=== PATIENT | female | born 1955 | race Caucasian/White ===

== ENCOUNTER → 2018-01-03 08:30 | Outpatient (CLI) | payer OTHER, SELFPAY ==
[2018-01-03 10:50] LABS: AST(SGOT) 15 U/L (15-37); Alanine Aminotransfer ALT/SGPT 27 U/L (13-56); Anion Gap 6 (5-15); BUN 15 mg/dL (7-18); Calcium,Total 9.6 mg/dL (8.5-10.1); Chloride 104 mmol/L (98-107); Cholesterol 211 mg/dL (200); Creatinine, Serum 0.79 mg/dL (0.55-1.02); EST Glomerular Filtration Rate 78 mL/min (>60); Est Glom Filt Rate - Afr Amer 94 mL/min (>60); Glucose 96 mg/dL (74-106); High Density Lipoprotein 84 mg/dL; Potassium 4.2 mmol/L (3.5-5.1); Sodium Level 140 mmol/L (136-145); Triglycerides 102 mg/dL; Very Low Density Lipoprotein 20 mg/dL (5-40)
== END ==
PROVIDERS: Family Provider Family Medicine; PCP Family Medicine; Referring Provider Family Medicine; Visit Provider Family Medicine
DX: E78.5 Hyperlipidemia, unspecified (principal); I10 Essential (primary) hypertension
CPT/HCPCS: 36415; 80048; 80061; 84450; 84460

== ENCOUNTER → 2018-04-02 10:21 | Outpatient (CLI) | payer OTHER, SELFPAY ==
--- NOTE | 2018-04-02 10:24 | BI_ITS ---
MAMMOGRAPHY - BILATERAL SCREENING REASON FOR EXAM: Female, 62 years old. Routine annual screening examination. PERTINENT HISTORY: Non-contributory. TECHNIQUE: Digital bilateral breast heather (3D mammographic acquisition) in the CC and MLO projections. 2-D mediolateral oblique (MLO) and craniocaudad (CC) views of both breasts were obtained. CAD: Full Field Digital Mammography with Computer Added Detection was performed. COMPARISON: Comparison is made with prior study dated July 01, 2014 and February 03, 2016. FINDINGS: Breast Composition: There are scattered areas of fibroglandular density. There are no dominant masses or suspicious calcifications. There is a 6.1 mm x 5.3 mm well-defined nodular density in the slightly upper lateral portion of the left breast. This is new as compared to prior study. Correlation with ultrasound is recommended. No other significant abnormalities are identified. BI/SCREENING MAMM (CAD), BILAT IMPRESSION: New 6.1 mm x 5.3 mm well-defined nodule in the left breast as described. Correlation with ultrasound is recommended. ASSESSMENT CATEGORY: BIRADS Category 0: Incomplete. Need additional imaging evaluation. A letter regarding these results will be sent to the patient by the facility within 30 days. Approximately 10% of breast cancers are not detected by mammography. A normal mammogram should not delay biopsy of a clinically suspicious abnormality. [id number] Electronically Signed: Alcides Harry MD at 12:57 EST Tel [phone], Service support ,
== END ==
PROVIDERS: Family Provider Family Medicine; PCP Family Medicine; Visit Provider Obstetrics & Gynecology
DX: Z12.31 Encounter for screening mammogram for malignant neoplasm of breast (principal)
CPT/HCPCS: 77063; 77067

== ENCOUNTER → 2018-04-04 10:48 | Outpatient (CLI) | payer OTHER, SELFPAY ==
--- NOTE | 2018-04-04 10:50 | US_ITS ---
STUDY: ULTRASOUND BREAST - LEFT REASON FOR EXAM: Female, 62 years old. Abnormal screening mammogram. TECHNIQUE: Axial and longitudinal images of the LEFT breast were performed with a high resolution ultrasound transducer. COMPARISON: Comparison is made with prior mammogram dated April 02, 2018. FINDINGS: LEFT Breast: There is a 6 mm x 4 mm x 5 mm well-defined hypoechoic nodule at the 4:00 position breast at 4 cm from the nipple. A biopsy is recommended for further evaluation. US/Breast Limited Unilateral IMPRESSION: The mammographic abnormality corresponds to a 6 mm x 4 mm x 5 mm well-defined hypoechoic solid nodule at the 4:00 position of the breast at 4 cm from the nipple. A biopsy is recommended. ASSESSMENT CATEGORY: BIRADS Category 4: Suspicious - Biopsy Should Be Considered. A letter regarding these results will be sent to the patient by the facility within 30 days. Electronically Signed: Alcides Harry MD at 13:40 EST Tel [phone], Service support ,
== END ==
PROVIDERS: Family Provider Family Medicine; PCP Family Medicine; Referring Provider Obstetrics & Gynecology; Visit Provider Obstetrics & Gynecology
DX: N63.23 Unspecified lump in the left breast, lower outer quadrant (principal)
CPT/HCPCS: 76642

== ENCOUNTER → 2018-04-10 13:15 | Outpatient (CLI) | payer OTHER, SELFPAY ==
--- NOTE | 2018-04-10 | IMM_PTH ---
PATIENT: ROMÁN IBARRA LOC: [facility] U#:[id number] AGE/SX: 69/F ROOM: RE04/10/[address]: Dr. Bakari Goddard MD : 1955 BED: DIS: SPEC #: [id number] RECD: 04/11/18 13:05 STATUS: JUANCARLOS RETootie #: [id number] JACY: 04/10/18 00:[address]: Bakari Goddard DEPT: IMMUNOHISTOCHEMISTRY RECD BY: Barbara Calderon ENTERED: 04/11/18 13:07 SP TYPE: IMMUNO OTHR DR: Dr. Britta Weaver MD Tissues: Left breast, NOS Procedures: CALPONIN-1 (add) CK5-6 (add) CK8 (add) E-CAD (add) HER2 MEGHA (add) KI-67 (add) P53 (add) SD (add) P40 (add) ER (initial) PHYSICIAN & INSTITUTION [facility] [id number] SPECIMEN INFORMATION: Tissue Source: Left breast Clinical Info: Abnormal left breast ultrasound Specimen Number: [id number] CPT code: 60718, 66208 x6, 51671 x3 METHODOLOGY: Deparaffinized sections of prefer/formalin-fixed tissue or PAP/DQ stained slides are incubated with monoclonal/polyclonal antibodies/oligonucleotide probes. Localization is made via biotin free immunoperoxidase method. Appropriate controls are performed and reacted as expected. Results on target cell population are indicated in the following table: RESULTS: ANTIBODY / CLONE RESULT P53 (DO-7) negative Ki-67 (30-9) positive, low CK8 (85mzpiI80) positive CK5-6 (D5 & 1684) negative Calponin-1 (AI201R) negative P40 (BC28) negative E-Cad (ECH-6) positive MORPHOMETRIC ANALYSIS ER (clone 6F11) >95%, strong SD (clone 16/1E2) 90%, strong Her-2Neu (clone CB11) 0-1+ The prognostic test for HER2 is performed on formalin-fixed paraffin embedded tissue. A 3+ (positive) staining pattern is defined as intense, homogeneous, complete, circumferential membranous staining in >10% of contiguous tumor cells. A similar weak (2+) staining pattern is interpreted as equivocal. LO follow-up testing is recommended for all equivocal cases. Positivity/negativity for ER/SD is reported if > or < 1% of the tumor cells are immuno- reactive, respectively. The ASCO/CAP criteria is used for scoring. Reference: Journal of Clinical Oncology, 2013; 31:1712-1552 & 2010; 16:4521-0586. Duration of fixation: 9.5 Hrs; Sample Adequate: Yes. These assays have not been validated on decalcified tissues. Results should be interpreted with caution given the likelihood of false negativity on decalcified specimens. These tests were developed and their performance characteristics determined by [facility]. They may not have been cleared or approved by the U.S. Food and Drug Administration. The FDA has determined that such clearance or approval is not necessary. INTERPRETATION: Left breast, biopsy: Invasive ductal (colloid) carcinoma, grade 1. Positive for estrogen receptors (favorable prognostic indicator). Positive for progesterone receptors (favorable prognostic indicator). Negative for overexpression of PSX5orr. AM:najma 04/12/18
[2018-04-10 09:49] VITALS: BMI 34.0
--- NOTE | 2018-04-10 10:00 | BRBX_PTH ---
PATIENT: ROMÁN IBARRA LOC: [facility] U#:[id number] AGE/SX: 69/F ROOM: RE04/10/[address]: Dr. Bakari Goddard MD : 1955 BED: DIS: SPEC #: [id number] RECD: 04/10/18 12:11 STATUS: JUANCARLOS REQ #: [id number] JACY: 04/10/18 10:[address]: Bakari Goddard DEPT: SURGICAL PATHOLOGY RECD BY: Boaz Velarde ENTERED: 04/10/18 12:41 SP TYPE: BREAST BX OTHR DR: MD Dr. Adryan Garcia MD Tissues: Left breast, NOS Procedures: Surgery Specimen Level IV Comments: @ Originally on account #[id number] Req #[id number] HEADER OPERATION: Left breast biopsy PRE-OP DIAGNOSIS: Abnormal left breast ultrasound TISSUE SUBMITTED: Left breast tissue FIXATION TIME: 9.5 hours MICROSCOPIC DIAGNOSIS Left breast, ultrasound-guided biopsy: Well differentiated ductal carcinoma (colloid carcinoma). AM:najma 04/11/18 COMMENT ER/NJ/Xfy5dhi studies are being performed on sections of tumor and the results from this study will be reported separately ([id number]). Case has been reviewed in consultation with Dr. Deal who concurs with the above diagnosis. IDC:JULIO CESAR MICROSCOPIC DESCRIPTION Slides are reviewed. GROSS DESCRIPTION Received in fixative is one container labeled with the patient's name and designated left breast. The specimen consists of multiple fragments of perez-yellow fibroadipose tissue that in aggregate measure 1.5 x 0.5 x 0.1 cm. The entire specimen is submitted in one cassette. / JULIO CESAR:najma 04/10/18 TC:0 CPT: 53865
--- OUTSIDE RECORDS SUMMARY | 2018-06-15 09:47 | XMS RPT_ITS ---
:1955 Author Organization OHIP Support Name Relationship Address Phone [facility] YARSANISM Unavailable [address] + [place] [address] ROGELIOR SUHAS Unavailable [address] + [place] [address] [facility] METHOD YARSANISM Unavailable [address] + [place] [address] ROGELIOR SUHAS Unavailable [address] + [place] [address] [facility] METH YARSANISM Unavailable [address] + [place] [address] UNGPIERCER, SUHAS Unavailable [address] + [place] [address] [facility] METH YARSANISM Unavailable [address] + [place] [address] UNGPIERCER, SUHAS Unavailable [address] + [place] [address] [facility] METH YARSANISM Unavailable [address] + [place] [address] ROGELIOR, SUHAS Unavailable [address] + [place] [address] [facility] METH YARSANISM Unavailable [address] + [place] [address] UNGPIERCER, SUHAS Unavailable [address] + [place] [address] [facility] METH YARSANISM Unavailable [address] + [place] [address] UNGPIERCER, SUHAS Unavailable [address] + [place] [address] [facility] METH YARSANISM Unavailable [address] + [place] [address] SUHAS HOLLOWAY Unavailable [address] + [place] [address] Care Team Providers Name Role Phone Macie Adryan Attending Unavailable Macie, Adryan Referring Unavailable Jolliff, Britta Primary Care Unavailable Cebul, Bakari Attending Unavailable Satnameman, Adryan Referring Unavailable Cebul, Bakari Attending Unavailable Cebul, Bakari Referring Unavailable Jolliff, Britta Primary Care Unavailable Cebul, Bakari Attending Unavailable Jolliff, Britta Referring Unavailable Prah, Bryce Attending Unavailable Jolliff, Britta Primary Care Unavailable Prah, Bryce Attending Unavailable Jolliff, Britta Primary Care Unavailable Prah, Bryce Consulting Unavailable Jolliff, Britta Attending Unavailable Jolliff, Britta Referring Unavailable Jolliff, Britta Primary Care Unavailable Weeman, Adryan Attending Unavailable Jolliff, Britta Primary Care Unavailable PROBLEMS PROBLEMS DATE TYPE CONDITION / CODE ATTENDING STATUS SOURCE 04/17/2018 Unknown C50.919 - Bryce Haddad Malignant neoplasm Community of unspecified Hospital site of Repository unspecified female breast / C50.919(ICD-10) 04/10/2018 Unknown R92.8 - Other Bakari Goddard Active [place] abnormal and Community inconclusive Hospital findings on Repository diagnostic imaging of breast / R92.8(ICD-10) PROCEDURES PROCEDURES No Procedure Records FoundRESULTS RESULTS ONCOLOGY CONSULTATION Observed: 04/17/2018 Status: F Source: [place] 5:04 PM [facility] REPOSITORY [facility] [address] [place] [address] Oncology Consultation Date of Service: 04/17/18 1624 MR#: [id number] Acct: [id number] Name: ROMÁN HOLLOWAY Rep #: [id number] : 1955 From: Bryce Haddad MD Age/Sex: 62/F Location: [facility]MD Status: Signed Consult Referring Physician: Dr. Hicks Consult Results: Left breast cancer-colloid type. Subjective Date of Service:: 04/17/18 Chief Complaint: Left breast cancer History of Present Illness: 62y.o.woman was found to have abnormal screening mammogram on 04/02/2018. Ultrasound of the left breast on 04/04/2018 showed 6 mm nodule in the left lower outer quadrant. She had core biopsy done on 04/10/2017 which showed well-differentiated ductal carcinoma, colloid type ER/DE positive, HER-2 0-1+ by IHC. She saw Dr. Goddard and they discussed surgical management including mastectomy with axiilary lymph node dissection versus lumpectomy, lymph node dissection followed by radiation therapy. She is not sure what to do so was referred for another opinion/discussion. Health History: Past Medical History Cancer: Breast cancer Past Medical History (Last Updated 04/17/18 @ 15:33 by Sandra Durant) Breast cancer in female (Acute) Screening for intestinal cancer (Acute) Abnormal mammogram of left breast (Acute) History of hysterectomy (Acute) Breast cancer (Acute 03/2018) History of hysterectomy (Acute 2009) Hyperlipidemia (Acute) HTN (hypertension) (Chronic) Past Surgical History (Last Updated 04/16/18 @ 14:13 by Ana Rubio) History of breast biopsy (Acute) History of dilation and curettage (Acute) Family History (Last Updated 04/10/18 @ 09:51 by Ana Rubio) Mother Heart disease Hypertension Father Heart disease Myocardial infarction Brother Hypertension Allergies/Adverse Reactions: Allergy/AdvReac Type Severity Reaction Status Date / Time No Known Allergies Allergy Verified 04/16/18 14:13 Review of Systems Constitutional:: Denies: Fever, Sweats, Weight loss, Appetite change, Chills Cardiovascular:: Denies: Chest pain, Palpitations, Dyspnea on exertion, Orthopnea, PND, Shortness of breath Respiratory: Denies: Cough, Hemoptysis, Shortness of Breath, Wheezing Gastrointestinal:: Denies: Abdominal pain, Nausea, Vomiting, Diarrhea, Constipation, Hematochezia Genitourinary: Denies: Dysuria, Hematuria, 15, Flank pain Musculoskeletal:: Denies: Back pain, Myalgia, Arthralgia Skin: Denies: Rash, Skin Changes, Wounds Neurological:: Denies: Headache, Dizziness, Visual changes, Tinnitus, Hearing loss Psychiatric: Denies: Anxiety, Depression, Homicidal Ideations, Suicidal Ideations Vital Signs Height 5 ft 5 in Weight: 102.058 kg Weight in Pounds 225.0 lbs Pulse Ox 95 - Physical Exam General: Alert, Oriented x3, No apparent distress HEENT: Atraumatic, PERRLA, EOMI, Normocephalic Oropharynx:: Dry mucosa Neck:: Supple, Trachea midline. Negative for: JVD, bilateral Cardiac:: Regular rate, Regular rhythm, Normal S1, Normal S2. Negative for: Murmur Lungs: Clear to auscultation, Excusion symmetrical. Negative for: Rhonchi, Wheezes Abdomen:: Bowel sounds x 4, Soft, Non-tender, Non-distended. Negative for: Hepatosplenomegaly Extremities:: Negative for: Cyanosis, Edema Neurological: Neuro grossly intact Skin:: Negative for: Lesions, Rash, Petechiae, Ecchymosis Psychiatric:: Appropriate affect, Euthymic Lymphatics:: Negative for: Cervical lymphadenopathy, Supraclavicular lymphadenopathy, Axillary lymphadenopathy Breast:: - - Deferred. Pathology Data: 04/10/2018 Lbreast core biopsy report reviewed. Left breast, biopsy: Invasive ductal (colloid) carcinoma, grade 1. Positive for estrogen receptors (favorable prognostic indicator). Positive for progesterone receptors (favorable prognostic indicator). Negative for overexpression of [id number]. Assessment and Plan Left Breast cancer, ductal-colloid type/mucinous type, stage IA(cT1 cN0 M0). ER/DE positive, Her2 negative. Tumor size 6mm. Grade 1. Discussed low risk, breast cancer stage I management, mastectomy vs lumpectomy and radiation therapy with survival equivalence. Also discussed role of hormonal therapy, prognosis which is good and about 90% in 10yrs. Because her disease is low risk, my recommendation will be lumpectomy and radiation. Plan is to follow up with Dr. Goddard to discuss her choice of surgical management and proceed. RTC 6 weeks. Primary Care Provider: Britta Weaver MD Referring Provider: - Problem List (1) Breast cancer, left Status: Acute Qualifiers: Breast location: lower outer quadrant of breast Estrogen receptor status: positive Patient sex: female Qualified Code(s): C50.512 - Malignant neoplasm of lower-outer quadrant of left female breast; Z17.0 - Estrogen receptor positive status [ER+] Code Visit Office Visits / Consults: 97686 OP Consult L5 04/17/18 8581 <Electronically signed by Bryce Haddad MD> Date [facility]: Date (if applicable) CC: Britta Weaver MD; Bakari Goddard MD SURGERY VISIT REPORT Observed: 04/16/2018 Status: F Source: [place] 5:[address] [facility] REPOSITORY [facility] [address] [place] [address] OFFICE VISIT Date of Service: 04/16/18 MR#: [id number] Acct: [id number] Name: ROMÁN HOLLOWAY Y Rep #: [id number] : 1955 Provider: Bakari Goddard MD Age/Sex: 62/F Location: [facility] Status: Signed Intake Intake Visit Reasons: Lt Breast Abnormal US Chief Complaint: post breast biopsy Psychological Operations Specialist Required: No Is patient in pain?: No Allergies No Known Allergies Allergy (Verified 04/16/18 14:13) Medications aspirin 81 mg tablet,delayed release 81 mg PO DAILY 04/10/18 [History Confirmed 04/10/18] atorvastatin 20 mg tablet 20 mg PO DAILY 04/10/18 [History Confirmed 04/10/18] calcium carbonate 500 mg calcium (1,250 mg) tablet 500 mg PO BID tab 04/10/18 [History Confirmed 04/10/18] metoprolol succinate ER 25 mg tablet,extended release 24 hr 25 mg PO DAILY 04/10/18 [History Confirmed 04/10/18] Is last menstrual period known: No Post menopausal: Yes Patient : No Subjective Details: 62-year-old female returns to discuss findings of ultrasound- guided needle core biopsy lower outer left breast mass that I performed on April 10, 2018 for her. My previous history and physical is as follows: MR#:[id number]:[id number] Name: ROMÁN HOLLOWAY YRep #:[id number] : 1955 Provider:Bakari Goddard MD Age/Sex: 62/F Location:[facility] Status:Signed Intake Vital Signs 04/10/18 Height 5 ft 6 in 04/10/18 Weight: 210 lb 12 oz 04/10/18 Body Mass Index (BMI) 34.0 04/10/18 Blood Pressure 137/84 H 04/10/18 Blood Pressure Location Rt brachial 04/10/18 Blood Pressure Position Sitting 04/10/18 Respiratory Rate 20 H 04/10/18 Pulse Rate 98 04/10/18 Pulse Ox 96 Intake Visit Reasons: Lt Breast Abn Mammo/US [facility] 04/04 Chief Complaint: abn mammo/us left breast Psychological Operations Specialist Required: No Is patient in pain?: No Allergies No Known Allergies Allergy (Verified 04/10/18 09:51) Medications aspirin 81 mg tablet,delayed release 81 mg PO DAILY 04/10/18 [History Confirmed 04/10/18] atorvastatin 20 mg tablet 20 mg PO DAILY 04/10/18 [History Confirmed 04/10/18] calcium carbonate 500 mg calcium (1,250 mg) tablet 500 mg PO BID tab 04/10/18 [History Confirmed 04/10/18] metoprolol succinate ER 25 mg tablet,extended release 24 hr 25 mg PO DAILY 04/10/18 [History Confirmed 04/10/18] Is last menstrual period known: No Post menopausal: Yes Patient : No PFSH Medical History Screening for intestinal cancer (Acute) Abnormal mammogram of left breast (Acute) History of hysterectomy (Acute 2009) Hyperlipidemia (Acute) HTN (hypertension) (Chronic) Surgical History History of dilation and curettage (Acute) Family History Mother Heart disease Hypertension Father Heart disease Myocardial infarction Brother Hypertension Social History Smoking Status: Never smoker HPI HPI HPI: ROMÁN HOLLOWAY, is a 62 F who presents to the office today for surgical consultation regarding an abnormal left mammogram. This also detected the patient has never had a colonoscopy. I have assisted her with a colonoscopy in the past. 62-year-old female. . First child was born when she was 23. Menarche at age 14. She did breast-feed. No previous breast biopsies. She was on estrogen replacement for up until a year ago. No history in the family of breast cancer. At the [facility] on April 02, 2018 she had bilateral screening mammography. There was felt to be a new 6.1 x 5.3 mm well-defined nodule lower outer left breast. So on April 04 a breast ultrasound was obtained. This demonstrated a 6 x 4 x 5 mm well-defined hypoechoic solid nodule 4 o'clock position left breast 4 cm from the nipple BI-RADS Category 4. The patient has been referred for surgical consultation. She denies any nipple discharge. She denies any abdominal pain bright red blood per rectum or melena. She denies any family history of colon cancer ROS General General: No weight change, appetite, fatigue, colon cancer, breast cancer or weakness HEENT HEENT: No difficulty swallowing, eye injury, eye surgery, swollen glands or hoarseness Endo Endocrine: No thyroid disease, diabetes mellitus, thyroid cancer, Hair loss, heat intolerance or cold intolerance Cardio Cardiovascular: Yes high blood pressure; no murmur, pacemaker, heart disease, atrial fibrillation, heart attack, heart stent, palpitations, shortness of breat with exertion or chest pain Resp Respiratory: No shortness of breath, No sleep apnea, No cough, No COPD, No asthma, No emphysema, No wheezing Gastro Gastrointestinal: No abdominal pain, No nausea or vomiting, No diarrhea, No constipation, No blood in stool, No acid reflux, No hemorrhoids, No ulcers, No gallbladder problem, No black,tarry stools Adam Hematologic: No blood thinners, No blood disorders, No bleeding, No anemia, No blood clots Neuro Neurologic: No weakness Exam Const General: cooperative, healthy appearing Nutritional Appearance: obese HENMT Head: normal to inspection Chest Other: Right breast: No focal mass. No nipple discharge. No axillary or clavicular adenopathy Left breast: No focal mass. No nipple discharge. No axillary or clavicular adenopathy Resp Effort AND Inspection: normal respiratory effort Auscultation: clear to auscultation bilaterally Cardio Rate: regular rate Rhythm: regular rhythm Heart Sounds: no murmurs GI Palpation: soft, no hepatosplenomegaly Neuro General: alert, awake Extrem General: no calf tenderness bilaterally Psych Affect: normal affect Office Procedures Biopsy Provider Documentation Ultrasound-guided needle core biopsy lower outer left breast Timeout and informed consent was obtained. The patient was taken to procedure room placed upon the table. Left shoulder roll was placed. Breast was prepped with Betadine. Ultrasound was performed. The density in question lower outer left breast 4 o'clock position +4 cm was identified. Under ultrasound guidance 1% lidocaine mixed 50-50 with 0.5% Marcaine was used as a local anesthetic. Throughout the procedure total of 10 cc was used. A small stab incision was created. A 14-gauge Monopty needle was advanced to prefire depth. Pre-and post fire films were obtained. 4 cores were obtained. A marking clip was left in position. Pressure was held for hemostasis. Steri-Strip Telfa and OpSite dressing applied. The specimens had been placed in formalin upon obtaining. She was given activity wound care instructions. The lesion in question was felt to have partially distorted with biopsy. It did not completely resolve. Final pathology is pending Bakari Goddard M.D., F.A.C.S. Alert Golf Course Architect Yes Biopsy Breast Biopsy: [id number] US Guidance Procedure Time Out Time Out Informed consent given: Yes Consent signed: Yes Time out checklist: patient, procedure, site marked/identified, positioning of patient, supplies available, allergies confirmed, team agrees on procedure Time out staff in room: Yes Time out verified: Yes Time out date: 04/10/18 Time out time: 10:10 Assessment AND Plan Problems 1. Abnormal mammogram of left breast R92.8 2. Screening for intestinal cancer Z12.10 Plan I recommend to the patient ultrasound-guided needle core biopsy lower outer left breast 4:00 +4 cm. She concurred and we proceeded successfully her that today. Final pathology is pending. I am anticipating benign results and plans for follow-up left unilateral mammogram ultrasound at 6 months I have recommended the patient a screening colonoscopy with possible biopsy or polypectomy is indicated. She is aware of the technique, benefit, risks, alternatives. She has had an opting to ask and have questions answered. She is now agreeable to scheduling in proceeding. CC: Dr. Britta Goddard M.D., F.A.C.S. Orders Orders: Biopsy Today R92.8 Colonoscopy Today Z12.11 Coding Level of Care Code Attention Golf Course Architect Diagnoses Abnormal mammogram of left breast R92.8 Screening for intestinal cancer Z12.10 Additional Codes Biopsy - Breast Biopsy: [id number] US Guidance (06870) 04/10/18 1457<Electronically signed by Bakari Goddard MD> Date Bakari Goddard MD Cosigner Signature:Date (if applicable) CC: Britta Weaver MD; Adryan Quijano MD Assessment AND Plan Problems 1. Abnormal mammogram of left breast R92.8 2. Breast cancer in female C50.919 Plan 62-year-old female. Ultrasound-guided needle core biopsy lower outer left breast 4 o'clock position demonstrates well differentiated ductal carcinoma (colloid carcinoma). Estrogen receptor greater than 95%. Progesterone receptor 90% strong. HER-2/brittney 0-1+. This was quite a well circumscribed lesion on her preoperative mammographic imaging. The mammograms do not demonstrate any additional focal disease bilaterally. Ultrasound was able to well see this lesion lower outer left breast 4:00. Today's appointment was a 30-minute [id number] consultative appointment with the patient and family members. I am not clinically able to detect any axillary or clavicular adenopathy. I believe that this is an early stage well-differentiated tumor with good prognosis. I have proposed for her a stereotactic wire localization left breast with subsequent wire localized lumpectomy and left axillary sentinel lymph node biopsy. She has had an opportunity to ask and have questions answered. She question whether she would be better treated with a left mastectomy. She also questioned whether she additionally should have a prophylactic right mastectomy. At the conclusion of the appointment based upon the current size of the lesion at 6 mm and well behaved pathology I believe that the breast conservation surgery would be a very appropriate approach. Of additional note is that there is no family history of breast cancer. At the conclusion of the appointment the patient was unsure. I recommended to her that we obtain hematology oncology consultation with to help describe to her from a nonsurgical standpoint appropriate options. She has had an opportunity to ask and have questions answered. We will tentatively set an operative date and the patient will preoperatively be able to decide how she would like to proceed. She is well aware that she has a favorable prognosis. I very much appreciate the kind opportunity of assisting with her surgical care. Cc: Dr Britta Weaver and Dr. Bryce Goddard M.D., F.A.C.S. Orders Referrals: Coding Level of Care Code Off vis,est,level 3 Diagnoses Abnormal mammogram of left breast R92.8 Breast cancer in female C50.919 04/16/18 1714 <Electronically signed by Bakari Goddard MD> Date Bakari Goddard MD Cosigner Signature: Date (if applicable) CC: Britta Weaver MD; Bryce Haddad MD SURGERY VISIT REPORT Observed: 04/10/2018 Status: F Source: [place] 2:57 PM [facility] [address] [place] [address] [address] [place] [address] OFFICE VISIT Date of Service: 04/10/18 MR#: [id number] Acct: [id number] Name: ROMÁN HOLLOWAY Rep #: [id number] : 1955 Provider: Bakari Goddard MD Age/Sex: 62/F Location: [facility] Status: Signed Intake Vital Signs04/10/18 Height 5 ft 6 in 04/10/18 Weight: 210 lb 12 oz 04/10/18 Body Mass Index (BMI) 34.0 04/10/18 Blood Pressure 137/84 H Intake Visit Reasons: Lt Breast Abn Mammo/US [facility] 04/04 Chief Complaint: abn mammo/us left breast Psychological Operations Specialist Required: No Is patient in pain?: No Allergies No Known Allergies Allergy (Verified 04/10/18 09:51) Medications aspirin 81 mg tablet,delayed release 81 mg PO DAILY 04/10/18 [History Confirmed 04/10/18] atorvastatin 20 mg tablet 20 mg PO DAILY 04/10/18 [History Confirmed 04/10/18] calcium carbonate 500 mg calcium (1,250 mg) tablet 500 mg PO BID tab 04/10/18 [History Confirmed 04/10/18] metoprolol succinate ER 25 mg tablet,extended release 24 hr 25 mg PO DAILY 04/10/18 [History Confirmed 04/10/18] Is last menstrual period known: No Post menopausal: Yes Patient : No PFSH Medical History Screening for intestinal cancer (Acute) Abnormal mammogram of left breast (Acute) History of hysterectomy (Acute 2009) Hyperlipidemia (Acute) HTN (hypertension) (Chronic) Surgical History History of dilation and curettage (Acute) Family History Mother Heart disease Hypertension Father Heart disease Myocardial infarction Brother Hypertension Social History Smoking Status: Never smoker HPI HPI HPI: ROMÁN HOLLOWAY, is a 62 F who presents to the office today for surgical consultation regarding an abnormal left mammogram. This also detected the patient has never had a colonoscopy. I have assisted her with a colonoscopy in the past. 62-year-old female. . First child was born when she was 23. Menarche at age 14. She did breast-feed. No previous breast biopsies. She was on estrogen replacement for up until a year ago. No history in the family of breast cancer. At the [facility] on April 02, 2018 she had bilateral screening mammography. There was felt to be a new 6.1 x 5.3 mm well-defined nodule lower outer left breast. So on April 04 a breast ultrasound was obtained. This demonstrated a 6 x 4 x 5 mm well-defined hypoechoic solid nodule 4 o'clock position left breast 4 cm from the nipple BI-RADS Category 4. The patient has been referred for surgical consultation. She denies any nipple discharge. She denies any abdominal pain bright red blood per rectum or melena. She denies any family history of colon cancer ROS General General: No weight change, appetite, fatigue, colon cancer, breast cancer or weakness HEENT HEENT: No difficulty swallowing, eye injury, eye surgery, swollen glands or hoarseness Endo Endocrine: No thyroid disease, diabetes mellitus, thyroid cancer, Hair loss, heat intolerance or cold intolerance Cardio Cardiovascular: Yes high blood pressure; no murmur, pacemaker, heart disease, atrial fibrillation, heart attack, heart stent, palpitations, shortness of breat with exertion or chest pain Resp Respiratory: No shortness of breath, No sleep apnea, No cough, No COPD, No asthma, No emphysema, No wheezing Gastro Gastrointestinal: No abdominal pain, No nausea or vomiting, No diarrhea, No constipation, No blood in stool, No acid reflux, No hemorrhoids, No ulcers, No gallbladder problem, No black,tarry stools Adam Hematologic: No blood thinners, No blood disorders, No bleeding, No anemia, No blood clots Neuro Neurologic: No weakness Exam Const General: cooperative, healthy appearing Nutritional Appearance: obese [facility] Head: normal to inspection Chest Other: Right breast: No focal mass. No nipple discharge. No axillary or clavicular adenopathy Left breast: No focal mass. No nipple discharge. No axillary or clavicular adenopathy Resp Effort AND Inspection: normal respiratory effort Auscultation: clear to auscultation bilaterally Cardio Rate: regular rate Rhythm: regular rhythm Heart Sounds: no murmurs GI Palpation: soft, no hepatosplenomegaly Neuro General: alert, awake Extrem General: no calf tenderness bilaterally Psych Affect: normal affect Office Procedures Biopsy Provider Documentation Ultrasound-guided needle core biopsy lower outer left breast Timeout and informed consent was obtained. The patient was taken to procedure room placed upon the table. Left shoulder roll was placed. Breast was prepped with Betadine. Ultrasound was performed. The density in question lower outer left breast 4 o'clock position +4 cm was identified. Under ultrasound guidance 1% lidocaine mixed 50-50 with 0.5% Marcaine was used as a local anesthetic. Throughout the procedure total of 10 cc was used. A small stab incision was created. A 14-gauge Monopty needle was advanced to prefire depth. Pre-and post fire films were obtained. 4 cores were obtained. A marking clip was left in position. Pressure was held for hemostasis. Steri-Strip Telfa and OpSite dressing applied. The specimens had been placed in formalin upon obtaining. She was given activity wound care instructions. The lesion in question was felt to have partially distorted with biopsy. It did not completely resolve. Final pathology is pending Bakari Goddard M.D., F.A.C.S. Alert Golf Course Architect Yes Biopsy Breast Biopsy: [id number] US Guidance Procedure Time Out Time Out Informed consent given: Yes Consent signed: Yes Time out checklist: patient, procedure, site marked/identified, positioning of patient, supplies available, allergies confirmed, team agrees on procedure Time out staff in room: Yes Time out verified: Yes Time out date: 04/10/18 Time out time: 10:10 Assessment AND Plan Problems 1. Abnormal mammogram of left breast R92.8 2. Screening for intestinal cancer Z12.10 Plan I recommend to the patient ultrasound-guided needle core biopsy lower outer left breast 4:00 +4 cm. She concurred and we proceeded successfully her that today. Final pathology is pending. I am anticipating benign results and plans for follow-up left unilateral mammogram ultrasound at 6 months I have recommended the patient a screening colonoscopy with possible biopsy or polypectomy is indicated. She is aware of the technique, benefit, risks, alternatives. She has had an opting to ask and have questions answered. She is now agreeable to scheduling in proceeding. CC: Dr. Britta Goddard M.D., F.A.C.S. Orders Orders: Coding Level of Care Code Attention [employer] Diagnoses Abnormal mammogram of left breast R92.8 Screening for intestinal cancer Z12.10 Additional Codes Biopsy - Breast Biopsy: 51642 US Guidance (21753) 04/10/18 1457 <Electronically signed by Bakari Goddard MD> Date Bakari Goddard MD Cosigner Signature: Date (if applicable) CC: Britta Weaver MD; Adryan Quijano MD BREAST BIOPSY Observed: 04/10/2018 Status: F Source: [place] (CHOOSE SITE) 10:[address] [facility] REPOSITORY Patient: ROMÁN HOLLOWAY : 1955 (62/F) Acct Num: [id number] Phys: Rupesh KNUTSON,Bakari Unit Num: [id number] Loc: LABSPEC Specimen: [id number] Received: 04/10/18 - 1211 Spec Type: BREAST BX TISSUES 1 TISSUES: Left breast, NOS COMMENT ER/DE/Pau2vhh studies are being performed on sections of tumor and the results from this study will be reported separately ([id number]). Case has been reviewed in consultation with Dr. Deal who concurs with the above diagnosis. IDC:SJ GROSS DESCRIPTION Received in fixative is one container labeled with the patient's name and designated left breast. The specimen consists of multiple fragments of perez- yellow fibroadipose tissue that in aggregate measure 1.5 x 0.5 x 0.1 cm. The entire specimen is submitted in one cassette. / SJ:najma 04/10/18 TC:0 CPT: 27989 HEADER OPERATION: Left breast biopsy PRE-OP DIAGNOSIS: Abnormal left breast ultrasound TISSUE SUBMITTED: Left breast tissue FIXATION TIME: 9.5 hours MICROSCOPIC DESCRIPTION Slides are reviewed. MICROSCOPIC DIAGNOSIS Left breast, ultrasound-guided biopsy: Well differentiated ductal carcinoma (colloid carcinoma). AM:najma 04/11/18 Signed Fabiano Moreno, 04/12/18 <signature on file> Performed By: #### PBRBX #### [facility] [address] [place] [address], [address] IMMUNOHISTOCHEMISTRY Observed: 04/10/2018 Status: F Source: [place] 12:[address] [facility] REPOSITORY Patient: ROMÁN HOLLOWAY : 1955 (62/F) Acct Num: [id number] Phys: Bakari Goddard MD Unit Num: [id number] Loc: LABSPEC Specimen: [id number] Received: 04/11/18 - 1305 Spec Type: IMMUNO TISSUES 1 TISSUES: Left breast, NOS SPECIMEN INFORMATION: Tissue Source: Left breast Clinical Info: Abnormal left breast ultrasound Specimen Number: [id number] CPT code: 45139, 99942 x6, 46381 x3 METHODOLOGY: Deparaffinized sections of prefer/formalin-fixed tissue or PAP/DQ stained slides are incubated with monoclonal/polyclonal antibodies/oligonucleotide probes. Localization is made via biotin free immunoperoxidase method. Appropriate controls are performed and reacted as expected. Results on target cell population are indicated in the following table: RESULTS: ANTIBODY / CLONE RESULT P53 (DO-7) negative Ki-67 (30-9) positive, low CK8 (04lbsqQ39) positive CK5-6 (D5 AND 1684) negative Calponin-1 (PP053B) negative P40 (BC28) negative E-Cad (ECH-6) positive MORPHOMETRIC ANALYSIS ER (clone 6F11) >95%, strong DE (clone 16/1E2) 90%, strong Her-2Neu (clone CB11) 0-1+ The prognostic test for HER2 is performed on formalin-fixed paraffin embedded tissue. A 3+ (positive) staining pattern is defined as intense, homogeneous, complete, circumferential membranous staining in >10% of contiguous tumor cells. A similar weak (2+) staining pattern is interpreted as equivocal. LO follow- up testing is recommended for all equivocal cases. Positivity/negativity for ER/ DE is reported if > or < 1% of the tumor cells are immuno- reactive, respectively. The ASCO/CAP criteria is used for scoring. Reference: Journal of Clinical Oncology, 2013; 31:0787-3176 AND 2010; 16:2784- 2795. Duration of fixation : 9.5 Hrs; Sample Adequate: Yes. These assays have not been validated on decalcified tissues. Results should be interpreted with caution given the likelihood of false negativity on decalcified specimens. These tests were developed and their performance characteristics determined by [facility]. They may not have been cleared or approved by the U.S. Food and Drug Administration. The FDA has determined that such clearance or approval is not necessary. INTERPRETATION: Left breast, biopsy: Invasive ductal (colloid) carcinoma, grade 1. Positive for estrogen receptors (favorable prognostic indicator). Positive for progesterone receptors (favorable prognostic indicator). Negative for overexpression of XMH2umi. AM:najma 04/12/18 PHYSICIAN [facility] INSTIT[facility] [address] [address] Signed Fabiano Moreno, DO 04/12/18 <signature on file> Performed By: #### PIMM #### [facility] [address] [place] [address]. [place], [place], [address] BREAST LIMITED Observed: 04/04/2018 Status: F Source: [place] UNILATERAL 10:[address] [facility] REPOSITORY [facility] Imaging Services [address] [place] [address] Breast Limited Unilateral MR#: [id number] Acct: [id number] Name: ROMÁN HOLLOWAY Rep #: [id number] : 1955 F 62 From: Alcides Harry MD PCP: Britta Weaver MD Status: REG CLI Study: Breast Limited Unilateral Date of Exam: 04/04/18 Exam# [id number] Ordering Dr: Adryan Quijano MD STUDY: ULTRASOUND BREAST - LEFT REASON FOR EXAM: Female, 62 years old. Abnormal screening mammogram. TECHNIQUE: Axial and longitudinal images of the LEFT breast were performed with a high resolution ultrasound transducer. COMPARISON: Comparison is made with prior mammogram dated April 02, 2018. FINDINGS: LEFT Breast: There is a 6 mm x 4 mm x 5 mm well-defined hypoechoic nodule at the 4:00 position breast at 4 cm from the nipple. A biopsy is recommended for further evaluation. US/Breast Limited Unilateral IMPRESSION: The mammographic abnormality corresponds to a 6 mm x 4 mm x 5 mm well-defined hypoechoic solid nodule at the 4:00 position of the breast at 4 cm from the nipple. A biopsy is recommended. ASSESSMENT CATEGORY: BIRADS Category 4: Suspicious - Biopsy Should Be Considered. A letter regarding these results will be sent to the patient by the facility within 30 days. Electronically Signed: Alcides Harry MD at 13:40 EST Tel [phone], Service support , CC: Britta Weaver MD; Adryan Quijano MD Slp Teacher: Signed SCREENING MAMM (CAD), Observed: 04/02/2018 Status: F Source: [facility] 10:[address] [facility] REPOSITORY [facility] Imaging Services [address] [place] [address] SCREENING MAMM (CAD), BILAT MR#: [id number] Acct: [id number] Name: ROMÁN HOLLOWAY Rep #: [id number] : 1955 F 62 From: Alcides Harry MD PCP: Britta Weaver MD Status: [facility] Study: SCREENING MAMM (CAD), BILAT Date of Exam: 04/02/18 Exam# [id number] Ordering Dr: Adryan Quijano MD MAMMOGRAPHY - BILATERAL SCREENING REASON FOR EXAM: Female, 62 years old. Routine annual screening examination. PERTINENT HISTORY: Non-contributory. TECHNIQUE: Digital bilateral breast heather (3D mammographic acquisition) in the CC and MLO projections. 2-D mediolateral oblique (MLO) and craniocaudad (CC) views of both breasts were obtained. CAD: Full Field Digital Mammography with Computer Added Detection was performed. COMPARISON: Comparison is made with prior study dated July 01, 2014 and February 03, 2016. FINDINGS: Breast Composition: There are scattered areas of fibroglandular density. There are no dominant masses or suspicious calcifications. There is a 6.1 mm x 5.3 mm well-defined nodular density in the slightly upper lateral portion of the left breast. This is new as compared to prior study. Correlation with ultrasound is recommended. No other significant abnormalities are identified. BI/SCREENING MAMM (CAD), BILAT IMPRESSION: New 6.1 mm x 5.3 mm well-defined nodule in the left breast as described. Correlation with ultrasound is recommended. ASSESSMENT CATEGORY: BIRADS Category 0: Incomplete. Need additional imaging evaluation. A letter regarding these results will be sent to the patient by the facility within 30 days. Approximately 10% of breast cancers are not detected by mammography. A normal mammogram should not delay biopsy of a clinically suspicious abnormality. [id number] Electronically Signed: Alcides Harry MD at 12:57 EST Tel [phone], Service support , CC: Britta Weaver MD; Adryan Quijano MD Slp Teacher: Signed BASIC METABOLIC Collected: 01/03/2018 Status: F Source: [place] PROFILE (BMP) 8:[address] [facility] REPOSITORY TYPE CODE TESTS RESULT OUT OF RANGE REFERENCE UNITS LAB L501.0100 74-106 mg/dL Normal GLU 96 Result Comment: Please note revised GLUCOSE reference range effective 2017. LAB L501.1000 7-18 mg/dL Normal BUN 15 LAB L501.1100 0.55-1.02 mg/dL Normal CREAT,SERUM 0.79 Result Comment: The validity of the calculated GFR AND GFRAA in patients over 70 years has not been determined. Clinical correlation is essential. LAB L501.1110 >60 mL/min Normal EST GFR 78 Result Comment: Non- GFR Calc LAB L501.1115 >60 mL/min Normal EST GFR - AA 94 Result Comment: GFR Calc LAB L501.1300 10-20 RATIO Normal BUN/CRE 19.0 LAB L501.2200 8.5-10.1 mg/dL CA Normal 9.6 LAB L501.5300 136-145 mmol/L NA Normal 140 LAB L501.5600 3.5-5.1 mmol/L K Normal 4.2 LAB L501.5900 98-107 mmol/L CL Normal 104 LAB L501.6100 21.0-32.0 mmol/L Normal CO2 30.0 LAB L501.6200 5-15 Normal GAP 6 Performed By: #### L500.2500, L500.4100, L501.4100, L501.4405 #### [facility] [address] [place], [place], [id number] LIPID PROFILE Collected: 01/03/2018 Status: F Source: [place] 8:[address] [facility] REPOSITORY TYPE CODE TESTS RESULT OUT OF RANGE REFERENCE UNITS LAB L501.4900 200 mg/dL High CHOL 211 Result Comment: <200 mg/dL Desirable 200-240 mg/dL Borderline >240 mg/dL High Risk LAB L501.5000 mg/dL Normal TRIG 102 Result Comment: The drugs N-Acetylcysteine and Metamizole may falsely depress this assay. Serum Triglycerides Reference Interval Normal <150 mg/dL Borderline high 150 - 199 mg/dL High 200 - 499 mg/dL Very High > or = 500 mg/dL LAB L501.6400 mg/dL Normal HDL 84 Result Comment: The drugs N-Acetylcysteine and Metamizole may falsely depress this assay. Reference Range HDL <40 mg/dL Low HDL Cholesterol HDL >or= 60 mg/dL High HDL Cholesterol LAB L501.6500 0-130 mg/dL Normal LDL 107 LAB L501.6600 5-40 mg/dL Normal VLDL 20 Performed By: #### L500.2500, L500.4100, L501.4100, L501.4405 #### [facility] [address] [place], [address] AST(SGOT) Collected: 01/03/2018 Status: F Source: [place] 8:[address] [facility] REPOSITORY TYPE CODE TESTS RESULT OUT OF RANGE REFERENCE UNITS LAB L501.4100 15-37 U/L Normal AST 15 Performed By: #### L500.2500, L500.4100, L501.4100, L501.4405 #### [facility] [address] [place], [address] ALANINE AMINOTRANSFERAS Collected: 01/03/2018 Status: F Source: [place] (SGPT) 8:[address] [facility] REPOSITORY TYPE CODE TESTS RESULT OUT OF RANGE REFERENCE UNITS LAB L501.4405 13-56 U/L Normal ALT 27 Performed By: #### L500.2500, L500.4100, L501.4100, L501.4405 #### [facility] [address] [place], [address] PROGRESS Observed: 09/28/2017 Status: COMPLETED Source: [place] 9:54 AM [facility] REPOSITORY HNO ID: [id number] Author: Skyler Trevino (Coord) Service: (none) Author Type: Research Type: Progress Notes Filed: 09/28/2017 9:55 AM Note Text: RESEARCH STUDY: PATIENT CONSENTING TO PARTICIPATE DOCUMENTATION Patient/Subject Name: Román Holloway : 1955 Description: IRB# [id number] Research Study Title: VIPER: Validity of Proxy Responses Sap Manager: Shawna Alvarado, PhD News Assignment Editor: Lacho Trevino Informed Consent obtained on: September 28, 2017 Objective: Improving the Interpretation and Utilization of Patient-Reported Outcome Measurements in Clinical Research The research study?s most current version of the valid informed consent document was reviewed with and explained to the patient. All risks, benefits, alternatives and procedures of the research study were reviewed with and explained to the patient. All of the patient's research study related and medical questions were answered at this time. The patient has read the most current version of the valid informed consent document and expressed understanding of the research study. The patient stated they would like to participate in the research study and signed the most current version of the valid informed consent document. A copy of the signed informed consent document (Informed Consent Version: Version B2, IRB Approval Date: 08/15/2017) was given to the research subject. Participation in this arm of this research study is limited to this encounter. After completion of the study survey assessments post-consent participation is ended. Participant completed all assessments. Skyler Trevino, Coord September 28, 2017 ALLERGIES ALLERGIES DATE TYPE / CODE NAME / CODE REACTION SEVERITY SOURCE 04/16/2018 Drug No Known Unknown [place] [facility] Allergy/4160 Allergies/F00 [facility] 23436(SNOMED 2895630(RXNOR Repository CT) M) ENCOUNTERS ENCOUNTERS ADMIT/DISCHARGE ACCOUNT ADMITTING ENCOUNTER LOCATION SOURCE NUMBER CLASS 04/17/2018 [id number] Ambulatory BMSBuilding:B [place] 4 MS.CF.[facility] Repository 04/17/2018 [id number] Ambulatory [place] 9 [facility] ing:OMD Repository 04/16/2018/ [id number] Ambulatory BMSBuilding:B [place] 6 [facility] Repository 04/10/2018 [id number] Ambulatory [place] [facility] ing:LABSPEC Repository 04/10/2018/ [id number] Ambulatory BMSBuilding:B [place] 9 7 [facility] Repository 04/04/2018 [id number] Ambulatory [place] 4 [facility] ing:OPUS Repository 04/02/2018 [id number] Ambulatory [place] 2 [facility] ing:OPBI Repository 01/03/2018 [id number] Ambulatory [place] 2 [facility] ing:MTLAB Repository PAYERS PAYERS ENCOUNTER GUARANTOR PAYER SUBSCRIBER SOURCE 04/17/2018 MADYSON Woodall Primary MADYSON Olivas [id number] Insurance:AETNAPolicy UNGERERDOB: Community [place]: [id number] [id number] Repository [address]Ndo: (222) Date:6893-43-39[phone] () [id number] [place] [address]LZ: 04/17/2018 Secondary NOT GIVENUNK [place] Insurance:SELF PAY [facility] Number: Effective Repository Date:2018-04-17 04/17/2018 MADYSON Woodall Primary MADYSON Olivas [id number] Insurance:AETNAPolicy UNGERERDOB: [facility] [place] Number: [id number], [place] [id number] Repository [address]Klp: ([phone]) Date:2907-50-03UO [phone] () [id number] [place] [address]HW: 04/17/2018 Secondary NOT GIVENUNK [place] Insurance:SELF PAY [facility] Number: Effective Repository Date:2018-04-16 04/16/2018 MADYSON Woodall Primary MADYSON Olivas [id number] Insurance:AETNAPolicy UNGERERDOB: [facility] [place] Number: [id number], [place] [id number] Repository [address]Ecp: (846) Date:1847-24-25FR [phone] (HP) [id number] [place] [address]YA: 04/16/2018 Secondary NOT GIVENUNK [place] Insurance:SELF PAY [facility] Number: Effective Repository Date:2018-04-16 04/10/2018 MADYSON Woodall Primary MADYSON Olivas [id number] Insurance:AETNAPolicy UNGERERDOB: Community [place] Number: [id number], [place] [id number] Repository [address]Jge: ([phone]) Date:3217-69-94JJ [phone] () [place] [address]OE: 04/10/2018 Secondary NOT GIVENUNK [place] Insurance:SELF PAY [facility] Number: Effective Repository Date:2018-04-10 04/10/2018 MADYSON Woodall Primary MADYSON Olivas [id number] Insurance:AETNAPolicy UNGERERDOB: [facility] [place] Number: [id number], [place] [id number] Repository [address]Fpl: ([phone]) Date:3735-85-45GV [phone] () [id number], [place] [address]ZZ: 04/10/2018 Secondary NOT GIVENUNK [place] Insurance:SELF PAY [facility] Number: Effective Repository Date:2018-04-08 04/04/2018 MADYSON Woodall Primary MADYSON Olivas [id number] Insurance:AETNAPolicy UNGERERDOB: Community [place] Number: [id number], [place] [id number] Repository [address]Ver: ([phone]) Date:2794-24-80NV [phone] () [id number], [place] [address]BK: 04/04/2018 Secondary NOT GIVENUNK [place] Insurance:SELF PAY [facility] Number: Effective Repository Date:2018-04-02 04/02/2018 MADYSON Woodall Primary MADYSON Olivas [id number] Insurance:AETNAPolicy UNGERERDOB: Community [place] Number: [id number], [place] [id number] Repository [address]Arm: ([phone]) Date:8918-76-70MO [phone] () [id number] [place] [address]FA: 04/02/2018 Secondary NOT GIVENUNK [place] Insurance:SELF PAY [facility] Number: Effective Repository Date:2018-01-07 01/03/2018 Madyson Woodall Primary Madyson Woodall [place] [id number] Insurance:AETNAPolicy UngererDOB: Community [facility] Number: [id number], [place] [id number] Repository [address]Lfj: ([phone]) Date:9824-58-93[place] [phone] () [id number] MARIE [place] [address]SQ: 01/03/2018 Secondary NOT GIVENUNK [place] Insurance:SELF PAY [facility] Number: Effective Repository Date:2018-01-03
== END ==
PROVIDERS: Family Provider Family Medicine; PCP Family Medicine; Referring Provider Surgery; Visit Provider Surgery
DX: C50.912 Malignant neoplasm of unspecified site of left female breast (principal)
CPT/HCPCS: 88305; 88341; 88342

== ENCOUNTER 2018-04-26 05:29 | Day surgery (SDC) | payer OTHER, SELFPAY ==
[2018-04-10 09:49] VITALS: BMI 34.0
[2018-04-17 15:34] VITALS: BMI 37.4
[2018-04-26] VITALS (8 sets, daily range): BP systolic 111–171; BP diastolic 59–92; PULSE 63–83; RESP 12–16; TEMP 35.8–36.3; O2SAT 93–100; BMI 36.6
--- NOTE | 2018-04-26 06:48 | OP.ENDO_ITS ---
Patient Name: Esther Holloway Procedure Date: 04/26/2018 6:15 AM Date of : 1955 Age: 62 Procedure: Colonoscopy Indications: Screening for colorectal malignant neoplasm Providers: Bakari Goddard MD Referring MD: Bakari Goddard MD Medicines: Midazolam 3.5 mg IV, Meperidine 100 mg IV Patient Profile: Last Colonoscopy: none. The patient's first colonoscopy is today. Complications: No immediate complications. Procedure: Pre-Anesthesia Assessment: - Prior to the procedure, a History and Physical was performed, and patient medications and allergies were reviewed. The patient's tolerance of previous anesthesia was also reviewed. The risks and benefits of the procedure and the sedation options and risks were discussed with the patient. All questions were answered, and informed consent was obtained. Prior Anticoagulants: The patient has taken no previous anticoagulant or antiplatelet agents. ASA Grade Assessment: II - A patient with mild systemic disease. After reviewing the risks and benefits, the patient was deemed in satisfactory condition to undergo the procedure. After I obtained informed consent, the scope was passed under direct vision. Throughout the procedure, the patient's blood pressure, pulse, and oxygen saturations were monitored continuously. The Colonoscope was introduced through the anus and advanced to the cecum, identified by appendiceal orifice and ileocecal valve. The colonoscopy was performed without difficulty. The patient tolerated the procedure well. The quality of the bowel preparation was good. The ileocecal valve and the appendiceal orifice were photographed. Moderate Sedation: Moderate (conscious) sedation was personally administered by the endoscopist. The following parameters were monitored: oxygen saturation, heart rate, blood pressure, and response to care. Total physician intraservice time was 15 minutes. Scope In: 6:32:07 AM Scope Withdrawal Time 0 hours 7 minutes 21 seconds Scope Out: 6:42:38 AM Total Procedure Duration Time 0 hours 10 minutes 31 seconds Findings: The digital rectal exam findings include non-thrombosed external hemorrhoids, non-thrombosed internal hemorrhoids and internal hemorrhoids that prolapse with straining, but require manual replacement into the anal canal (Grade III). Pertinent negatives include normal sphincter tone. The colon (entire examined portion) appeared normal. Impression: - Non-thrombosed external hemorrhoids, non-thrombosed internal hemorrhoids and internal hemorrhoids that prolapse with straining, but require manual replacement into the anal canal (Grade III) found on digital rectal exam. - The entire examined colon is normal. - No specimens collected. Recommendation: - Discharge patient to home. - Resume previous diet. - Repeat colonoscopy in 10 years for screening purposes. - Continue present medications. Procedure Code(s): --- Professional --- 33173, Colonoscopy, flexible; diagnostic, including collection of specimen(s) by brushing or washing, when performed (separate procedure) 23796, 59, Moderate sedation services provided by the same physician or other qualified health daycare manager performing the diagnostic or therapeutic service that the sedation supports, requiring the presence of an independent trained observer to assist in the monitoring of the patient's level of consciousness and physiological status; initial 15 minutes of intraservice time, patient age 5 years or older Diagnosis Code(s): --- Professional --- Z12.11, Encounter for screening for malignant neoplasm of colon K64.2, Third degree hemorrhoids K64.4, Residual hemorrhoidal skin tags CPT copyright 2017 [employer]. All rights reserved. The codes documented in this report are preliminary and upon vacuum filter operator review may be revised to meet current compliance requirements. Bakari Goddard MD 04/26/2018 6:48:05 AM This report has been signed electronically. Number of Addenda: 0 Note Initiated On: 04/26/2018 6:15 AM
== END 2018-04-26 09:13 | disposition home or self-care (01) ==
LOC: EN 05:30 → AC 05:31
PROVIDERS: Family Provider Family Medicine; PCP Family Medicine; Referring Provider Surgery; Visit Provider Surgery
PROC: 0DJD8ZZ Inspection of Lower Intestinal Tract, Via Natural or Artificial Opening Endoscopic (ICD-10-PCS; CPT 45378; principal; 2018-04-26 06:25)
DX: Z12.11 Encounter for screening for malignant neoplasm of colon (principal); K64.4 Residual hemorrhoidal skin tags; K64.2 Third degree hemorrhoids; I10 Essential (primary) hypertension; E78.5 Hyperlipidemia, unspecified; C50.919 Malignant neoplasm of unspecified site of unspecified female breast; E66.9 Obesity, unspecified; Z68.34 Body mass index [BMI] 34.0-34.9, adult; Z78.0 Asymptomatic menopausal state; Z79.82 Long term (current) use of aspirin; Z79.899 Other long term (current) drug therapy
CPT/HCPCS: 45378; 99152; 99153; J7120

== ENCOUNTER 2018-04-30 09:24 | Day surgery (SDC) | payer OTHER, SELFPAY ==
[2018-04-17 15:34] VITALS: BMI 37.4
--- NOTE | 2018-04-26 05:39 | RAD_ITS ---
STUDY: X-RAY CHEST REASON FOR EXAM: Female, 62 years old. Chest pain following colonoscopy. TECHNIQUE: PA and lateral views of the chest. COMPARISON: None. FINDINGS: The lungs are clear and expanded. Scattered calcified granulomas. There is no demonstrated pleural abnormality. Normal size heart. Normal mediastinum and dena. Normal visualized pulmonary arteries. Normal visualized aortic arch and descending thoracic aorta. Normal visualized thoracic spine. Normal visualized ribs, clavicles, and shoulders. There is no demonstrated abnormality of the visualized soft tissue structures of the upper abdomen. RAD/Chest PA and Lateral IMPRESSION: Normal x-ray examination of the chest. Electronically Signed: Alcieds Harry MD at 10:49 EST , Service support ,
--- NOTE | 2018-04-26 05:39 | EKG12_ITS ---
Test Reason : PRE OP Blood Pressure : / mmHG Vent. Rate : 073 BPM Atrial Rate : 073 BPM P-R Int : 156 ms QRS Dur : 084 ms QT Int : 406 ms P-R-T Axes : 060 080 056 degrees QTc Int : 447 ms Normal sinus rhythm Nonspecific ST abnormality Abnormal ECG Confirmed by FATOU KNUTSON, JERMAINE ([id number]), manager editorial DESIRE GARCIA ([id number]) on 04/30/2018 8:32:51 AM Referred By: Bakari Goddard Confirmed By:JERMAINE LAINEZ MD
[2018-04-26 05:52] VITALS: BMI 36.6
[2018-04-26 06:07] LABS: Hematocrit 40.6 % (37-47); Hemoglobin 13.1 g/dl (12.0-15.0); Mean Corp Hgb Conc 32.3 g/gl (32-36); Mean Corpuscular Hgb 28.2 pg (27.0-32.0); Mean Corpuscular Volume 87.3 fL (81-99); Mean Platelet Vol. 10.6 fl (6.2-12.0); Platelet Count 356 K/mm3 (150-450); RBC Distribution Width CV 13.2 % (11.6-14.6); Red Blood Count 4.65 M/mm3 (4.2-5.4); White Blood Count 6.7 K/mm3 (4.4-11.0)
[2018-04-26 06:09] LABS: Scan Indicated on CBC? Y/N NO
[2018-04-26 06:17] LABS: AST(SGOT) 17 U/L (15-37); Alanine Aminotransfer ALT/SGPT 27 U/L (13-56); Albumin, Serum 3.8 g/dL (3.2-5.0); Alkaline Phosphatase 94 U/L (45-117); Anion Gap 10 (5-15); BUN 10 mg/dL (7-18); BUN/Creat Ratio 13.9 RATIO (10-20); Calcium,Total 9.2 mg/dL (8.5-10.1); Chloride 107 mmol/L (98-107); Creatinine, Serum 0.72 mg/dL (0.55-1.02); EST Glomerular Filtration Rate 86 mL/min (>60); Est Glom Filt Rate - Afr Amer 105 mL/min (>60); Globulin 3.7 g/dL (2.2-4.2); Glucose 95 mg/dL (74-106); Potassium 3.6 mmol/L (3.5-5.1); Protein, Total 7.5 g/dL (6.4-8.2); Sodium Level 143 mmol/L (136-145)
[2018-04-30] VITALS (8 sets, daily range): BP systolic 127–162; BP diastolic 64–91; PULSE 63–76; RESP 16; TEMP 36.4–36.7; O2SAT 92–98; BMI 37.0
--- NOTE | 2018-04-30 | IMM_PTH ---
PATIENT: ROMÁN IBARRA [place] [facility] [place][id number] AGE/SX: 62/F ROOM: RE04/30/[address]: Dr. Bakari Goddard MD : 1955 BED: DIS: 04/30/2018 SPEC #: [id number] RECD: 05/03/18 13:28 STATUS: JUANCARLOS RETootie #: [id number] JACY: 04/30/18 00:[address]: Bakari Goddard DEPT: IMMUNOHISTOCHEMISTRY RECD BY: Barbara Calderon ENTERED: 05/03/18 13:29 SP TYPE: IMMUNO OTHR DR: Dr. Britta Weaver MD Tissues: B - Axillary lymph node, NOS Procedures: CK7 (add) Pankeratin (initial) PHYSICIAN & INSTITUTION [place] [id number] SPECIMEN INFORMATION: Tissue Source: B - Left axillary sentinel lymph nodes biopsy Clinical Info: Abnormal mammogram left breast Specimen Number: [id number] CPT code: 03012, 34926 METHODOLOGY: Deparaffinized sections of prefer/formalin-fixed tissue or PAP/DQ stained slides are incubated with monoclonal/polyclonal antibodies/oligonucleotide probes. Localization is made via biotin free immunoperoxidase method. Appropriate controls are performed and reacted as expected. Results on target cell population are indicated in the following table: RESULTS: ANTIBODY / CLONE RESULT Block B AE1-3 (AE1/AE3/PCK26) negative CK7 (OV-TL12/30) negative These tests were developed and their performance characteristics determined by [facility]. They may not have been cleared or approved by the U.S. Food and Drug Administration. The FDA has determined that such clearance or approval is not necessary. INTERPRETATION: B. Left axillary sentinel lymph nodes, biopsy: Three out of three lymph nodes, negative for metastatic carcinoma. SJ:najma 05/03/18
--- NOTE | 2018-04-30 | BREAST_PTH ---
PATIENT: ROMÁN IBARRA LOC: [facility] [place] U#:[id number] AGE/SX: 62/F ROOM: RE04/30/[address]: Dr. Bakari Goddard MD : 1955 BED: DIS: 04/30/2018 SPEC #: [id number] RECD: 04/30/18 13:58 STATUS: JUANCARLOS MARY BETH #: [id number] JACY: 04/30/18 00:[address]: Bakari Goddard DEPT: SURGICAL PATHOLOGY RECD BY: Barbara Calderon ENTERED: 04/30/18 14:31 SP TYPE: BREAST OTHR DR: Dr. Britta Weaver MD Tissues: A - Left breast, NOS B - Axillary lymph node, NOS Procedures: Frozen Section (charge) Surgery Specimen Level V HEADER OPERATION: Lumpectomy, sentinel node, NL radiotracer identification PRE-OP DIAGNOSIS: Abnormal mammogram left breast TISSUE SUBMITTED: A - Left breast lumpectomy, wire coming out anteriorly, long stitch lateral, short stitch superior, sent to lab 1354, B - Left sentinel node frozen section at 1403 FROZEN SECTION DIAGNOSIS B. Left axillary sentinel lymph nodes, biopsy: Two out of two lymph nodes negative for carcinoma. AM:najma 04/30/18 MICROSCOPIC DIAGNOSIS A. 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 See cancer summary below. B. Left axillary sentinel lymph nodes, biopsy: Three out of three lymph nodes negative for metastatic carcinoma. See comment. SJ:najma 05/03/18 INVASIVE BREAST CANCER SUMMARY: (including specimen A & B) Specimen - partial breast Procedure - excision with wire-guided localization. Lymph node sampling - sentinel lymph nodes Specimen integrity - single intact specimen Specimen size - 6 x 4.5 x 2.5 cm Specimen laterality - left Tumor site - not specified Tumor size - 0.7 x 0.4 cm (measured microscopically) Tumor focality - single focus of invasive carcinoma Macroscopic and microscopic extent of tumor: Skin - skin is not present. Nipple - not applicable Skeletal muscle - no skeletal muscle present. Ductal carcinoma in situ - no ductal carcinoma in situ is present. Histologic type of invasive carcinoma - invasive well differentiated mucinous carcinoma (colloid carcinoma). Histologic Grade ([place] grade): Glandular/tubular differentiation - score 2 Nuclear pleomorphism - score 1 Mitotic count - score 1 Overall grade - 1 (score of 4) Margins - margins uninvolved by invasive carcinoma. The tumor is 6 mm away from the closest superior margin. Treatment effect: Response to presurgical (neoadjuvant) therapy - no known presurgical therapy. Lymph-Vascular invasion - not identified Dermal lymph-vascular invasion - Lymph nodes: Number of sentinel lymph nodes examined - 3 Total number of lymph nodes examined (sentinel and nonsentinel) - 3 Number of lymph nodes with macrometastases, micrometastases and isolated tumor cells - 0 Method of evaluation of sentinel lymph nodes - H & E, multiple levels and IHC. Distant metastasis - not applicable Additional pathologic findings - changes consistent with previous biopsy site. Ancillary studies - previously performed on section of tumor ([id number] / [id number]). ER - positive (>95%, strong) CO - positive (>95%, strong) Her2 brittney - negative (0-1+) Microcalcifications - not identified Clinical history - Please make reference to previous specimen ([id number]), left breast, ultrasound-guided core biopsy with diagnosis of well differentiated ductal carcinoma (colloid carcinoma). PATHOLOGIC STAGE: pT1b pN0(sn) pMx The above summary is in compliance with [employer] (CAP) Cancer Protocols Checklist and [place] Joint Committee on Cancer (AJCC), Staging Manual, 8th Ed. COMMENT B. The third smallest lymph node tissue is noted, only in the permanent sections of the slides. The lymph nodes are negative for metastatic carcinoma on multiple H & E levels and immunohistochemical stains for cytokeratins ([id number]). Case has been reviewed in consultation with Dr. Moreno who concurs with the above diagnosis. IDC:AM MICROSCOPIC DESCRIPTION Slides are reviewed. GROSS DESCRIPTION A - Received fresh for OR consultation labeled with the patient's name is a specimen designated left breast lumpectomy. The specimen consists of an irregular fragment of oriented fibrofatty tissue measuring 6 x 4.5 x 2.5 cm and weighing 38.2 gm. The specimen is differentially inked as follows: anterior - yellow, posterior - black, superior - blue, medial - red, lateral - orange and inferior - green. Serial sections reveal a biopsy cavity with surrounding area of induration measuring 5 mm in greatest dimension and located 6 mm from the closest (superior) margin of excision. The size of the lesion and proximity to closest margin is conveyed to the surgeon intraoperatively. No distinct mass lesion is identified. Press Setter sections are submitted as follows: 1 & 2 - perpendicular inked margins, 3?&?4?- biopsy cavity and surrounding indurated tissue, 5-8 - home furnishings sales representative sections of breast parenchyma adjacent to biopsy cavity, 9-12 - home furnishings sales representative sections of breast parenchyma away from biopsy cavity. Note, the tissue is submitted after additional fixation. B - Received fresh for frozen section consultation labeled with the patient's name is a specimen designated left axillary sentinel lymph node. The specimen consists of a single irregular fragment of perez-yellow fibrofatty tissue measuring 3 x 1.5 x 1 cm. Dissection reveals three nodules ranging in size from 0.5 to 0.8 cm. The nodules are submitted in their entirety for frozen section consultation in one block. / AM:najma 05/01/18 TC:0 CPT: 65860 x2, 74371, 12471
--- NOTE | 2018-04-30 08:22 | NM_ITS ---
PROCEDURE: NUCLEAR MEDICINE Injection Marianna Node - LEFT breast(s). REASON FOR EXAM: Female, 62 years old. Left breast cancer. TECHNIQUE: Marianna node localization using radionuclide methods of the LEFT breast(s) was performed following subcutaneous administration of 1.1 mCi of of sulfur colloid Tc-99m. FINDINGS: 1.1 mCi of technetium labeled sulfur colloid was injected in 4 equal aliquots in the left mid lateral aspect of the breast. NM/Lymph Node Injection Only IMPRESSION: Subcutaneous injection of 1.1 mCi of technetium sulfur colloid for sentinel node imaging. Electronically Signed: Alcides Harry MD at 12:55 EST , Service support ,
--- NOTE | 2018-04-30 12:34 | BI_ITS ---
SURGICAL BREAST SPECIMEN RADIOGRAPH CLINICAL: Document presence of tissue clip marker in biopsy specimen. FINDINGS: Specimen shows presence of tissue clip marker. Electronically Signed: Alcides Harry MD at 8:28 EST , Service support , BI/Breast Biopsy Specimen
--- NOTE | 2018-04-30 14:25 | PCM.OPRPT ---
Problem List (1) Breast cancer, left Status: Acute Qualifiers: Breast location: lower outer quadrant of breast Estrogen receptor status: positive Patient sex: female Qualified Code(s): C50.512 - Malignant neoplasm of lower-outer quadrant of left female breast; Z17.0 - Estrogen receptor positive status [ER+] Report of Operation Date of Procedure: 04/30/18 Pre-Operative Diagnosis: Lower outer left breast invasive ductal carcinoma Post-Operative Diagnosis: Lower outer left breast invasive ductal carcinoma Surgery/Procedure Performed:: Stereotactic wire localization lower outer left breast. Left axillary blue dye and radioactive tracer sentinel lymph node biopsy. Left breast lumpectomy partial mastectomy with wire localization Description of Surgical Findings:: Timeout and informed consent was obtained. 62-year-old female was taken to the stereotactic room placed on the table the left breast was placed in a lateral medial view the marking clip in question was rapidly identified stereotactic images were obtained digital information was taken on a single target site the breast was prepped with Betadine a 20-gauge needle wire was advanced to a depth wire was displaced. On fast meet our views demonstrated excellent localization. She was released from the device sterile dressings were applied she was sent to the operating for definitive surgery. She was taken out from placement table underwent general anesthesia the left arm was carefully wrapped with soft roll was placed at [place] was stable and then the left breast was prepped with alcohol 2 cc of isosulfan blue dye was injected retrogradely massaged for 3 minutes then the left breast and axilla were sterilely prepped draped and oblique incision made in the left axilla and then using blue dye tracking in the and the radioactive neoprobe attempts were made to identify the sentinel node. Admittedly the neoprobe did not seem to highlight any axillary lymph nodes. The blue dye lymphatic tracking could be identified and retracted to small nodes these were dissected free there was some bleeding that was secured with hemoclips small vessels. Finally having achieved that both on visualization and palpation and repeat use of the neoprobe there was no residual disease in the axilla. As the axilla was somewhat oozy I did put FloSeal in the left axilla. Specimen was sent for analysis and frozen section suggested to lymph nodes with no cancer. A curvilinear incision was made in the lower outer left breast electrocautery dissection performed circumferentially around the wire localized area. Specimen had a long suture placed laterally and a short suture superiorly. The cavity was treated with electrocautery the wound was closed with a deep layer of interrupted 3-0 Vicryl and then a running septic or 4-0 Monocryl. The axilla was closed with the same. Both incisions were treated with 0.5% Marcaine and a total 30 cc was used. Steri-Strips Telfa and OpSite dressings applied followed by bulky dry dressing. Sponge and instrument and needle counts were reported to the surgeon be correct. Blood loss was minimal. Specimens include the left axillary sentinel node in the left breast mass. Drains none. Blood loss minimal. Bakari Goddard M.D., F.A.C.S. Type of Anesthesia:: General Anesthesiologist: Wilfredo Ho
[2018-04-30] MEDS: Bupivacaine Mpf 0.5% 30 ML VIAL (14:26)
--- NOTE | 2018-04-30 15:00 | DCINST_ITS ---
Discharge Diet: No Restrictions Discharge Activity: May Not Drive - for 2-3 days or while taking narcotic pain meds. May shower in (days): 1 Lifting Restrictions: 10 pounds for 1 week. Call your doctor if your incision/area has: Continuous Slow Oozing, Sudden In creased Bleeding Call your doctor if you observe: Fever of 101 or Higher Suture Line Care: Avoid Pulling/Pushing, Avoid Pinching/Bending Remove Dressing in (days):: 1 - Remove bulky dressing tomorrow. May leave any opsite dressing for 3-4 days. Keep dressing in place until your follow-up appointment. Additional Dressing/Incision Instructions:: Remove bulky dressing tomorrow. May leave any opsite dressing for 3-4 days. The steri strips can remain for 5-7days after opcite removal. Allergies/Adverse Reactions: Allergies No Known Allergies Allergy (Verified 04/24/18 14:22) Medications to take at Discharge aspirin 81 mg tablet,delayed release 81 mg PO DAILY 04/10/18 atorvastatin 20 mg tablet 20 mg PO QHS 04/10/18 calcium carbonate 500 mg calcium (1,250 mg) tablet 500 mg PO DAILY tab 04/10/18 metoprolol succinate ER 25 mg tablet,extended release 24 hr 25 mg PO QHS 04/10/18 Amoxicillin/Potassium Clav [Amox-Clav 875-125 mg Tablet] 1 tab PO BID 04/26/18 Hydrocodone Bitart/Apap 5-325 [[place] 5MG-325MG] 1 tablet PO Q4H PRN PRN 3 Days #8 tablet 04/30/18 The following prescriptions were given: Hydrocodone Bitart/Apap 5-325 [[place] 5MG-325MG] 1 tablet PO Q4H PRN PRN 3 Days #8 tablet PRN Reason: Pain Primary Care Physician: Britta Weaver MD [Primary Care Provider] - Please Follow Up With: Bakari Goddard MD When: [phone] Office appt approximately 7-10 days.
[2018-04-30] MEDS: HYDROcodone Bitartrate/Apap 5/325 Tablet PO (16:26)
== END 2018-04-30 18:01 | disposition home or self-care (01) ==
LOC: SDC 09:26 → AC 09:26
PROVIDERS: Family Provider Family Medicine; PCP Family Medicine; Referring Provider Surgery; Visit Provider Surgery
PROC: (CPT 19301; principal; 2018-04-30 11:15)
DX: C50.512 Malignant neoplasm of lower-outer quadrant of left female breast (principal); Z17.0 Estrogen receptor positive status [ER+]; Z79.82 Long term (current) use of aspirin; Z79.899 Other long term (current) drug therapy; I10 Essential (primary) hypertension; E78.5 Hyperlipidemia, unspecified
CPT/HCPCS: 00400; 19301; 38525; 19281; 36415; 38792; 71046; 76098; 80053; 85027; 88305; 88307; 88331; 88341; 88342; 93005; A9541; J7120; J2405; Q9968

== ENCOUNTER → 2018-06-06 08:53 | Outpatient (CLI) | payer OTHER, SELFPAY ==
[2018-05-29 13:55] VITALS: BMI 37.5
[2018-06-03 13:00] VITALS: BMI 38.1
--- NOTE | 2018-06-06 08:59 | BD_ITS ---
STUDY: DUAL ENERGY X-RAY ABSORPTIOMETRY / DXA REASON FOR EXAM: Female, 62 years old. The patient is postmenopausal. Loss of height. TECHNIQUE: Bone Mineral Density (BMD) measurements of lumbar spine and bilateral hips were obtained. COMPARISON: None. FINDINGS: Lumbar Spine (L1-L4): g/cm2 (1.341) / T-score (1.3) / Z-score (2.9) Findings are suggestive of normal bone density with a low fracture risk. Left Femur Total: g/cm2 (1.163) / T-score (1.2) / Z-score (2.4) Left Femoral Neck: g/cm2 (1.043) / T-score (0.0) / Z-score (1.5) Right Femur Total: g/cm2 (1.197) / T-score (1.5) / Z-score (2.7) Right Femoral Neck: g/cm2 (1.079) / T-score (0.3) / Z-score (1.7) BD/Dexa Bone Density Study IMPRESSION: The patient is considered normal as outlined below according to World [employer] (WHO) criteria with a low fracture risk. Reference Information: The T-score is the number of standard deviations above or below the standard which is normal for young adults at their peak bone mineral density. The World Health Organization (WHO) interprets the T-scores as follows: Above -1 Normal bone density Between -1 and -2.5 Osteopenia Equal to / or below -2.5 Osteoporosis As a practical clinical guideline, osteopenia may be graded as follows: Mild -1 through -1.5 Moderate -1.6 through -2.0 Severe -2.1 through -2.4 The Z-score is the number of standard deviations above or below age-matched controls. A Z-score of less than -1.5 would be considered abnormal. References: 1. NIH Osteoporosis and Related Bone Diseases http://www.osteo.org 2. International Society for Clinical Densitometry http://www.iscd.org 3. National Osteoporosis Foundation http://www.nof.org Electronically Signed: Alcides Harry, at 10:05 EDT , Service support ,
== END ==
PROVIDERS: Family Provider Family Medicine; PCP Family Medicine; Visit Provider Internal Medicine Medical Oncology
DX: Z12.31 Encounter for screening mammogram for malignant neoplasm of breast (principal); Z78.0 Asymptomatic menopausal state
CPT/HCPCS: 77080

== ENCOUNTER → 2019-02-24 13:59 | Outpatient (CLI) | payer OTHER, MEDICARE, SELFPAY ==
[2018-06-03 13:00] VITALS: BMI 38.1
[2018-09-04 12:31] VITALS: BMI 37.0
--- NOTE | 2019-02-24 14:01 | CT_ITS ---
STUDY: CT ABDOMEN AND PELVIS WITH CONTRAST REASON FOR EXAM: Female, 63 years old. Follow-up evaluation and restaging after treatment of left-sided breast cancer. Last radiation therapy treatment was in June 2017. Patient has had left-sided breast lumpectomy. RADIATION DOSAGE (If Supplied By Facility): CTDIvol = ( 20.72 ) mGy, DLP = ( 1943.55 ) mGycm TECHNIQUE: Transaxial images were obtained from the dome of the diaphragm to the symphysis pubis with oral contrast. 100 ml of IV Isovue 300 was administered. Sagittal and coronal images were reconstructed. Individualized dose optimization techniques were used for this CT. COMPARISON: Prior comparison studies are not available for review at this time. FINDINGS: The visualized lung bases are unremarkable. The visualized portions of the heart are within normal limits. There is a small lucency in the subcapsular location of the right lobe of liver measuring approximately Normal gallbladder and extrahepatic biliary system. Normal spleen. Normal pancreas. Normal bilateral adrenal glands. Normal right kidney. Normal left kidney. Normal visualized stomach. There is no evidence for dilated bowel, ascites or pneumoperitoneum. The small bowel has a normal appearance. Enteric contrast and stool visible throughout the colon with scattered diverticula. The appendix is visualized and appears normal. There is patchy atherosclerotic calcification of the abdominal aorta, without a demonstrated aneurysm. There is venous distention of the inferior vena cava (IVC). Normal retroperitoneum. Normal urinary bladder. There is absence of the uterus consistent with a prior hysterectomy. There is a small umbilical hernia containing fat. The bones appear osteopenic. There is degenerative disc disease at L4-5 and L5-S1 with vacuum disc phenomenon and disc space narrowing. There appears to be a left-sided unilateral spondylolysis of L5. CT/Abdomen/Pelvis WITH Contrast IMPRESSION: 1. No CT evidence of acute intra-abdominal disease. 2. No CT evidence suggestive of metastasis. Electronically Signed: Kathy Kumar MD at 10:06 EST , Service support ,
--- NOTE | 2019-02-24 14:01 | CT_ITS ---
STUDY: CT CHEST WITH CONTRAST REASON FOR EXAM: Female, 63 years old. Restaging after treatment of left-sided breast cancer. Last radiation treatment was in June 2017. RADIATION DOSAGE (If Supplied By Facility): CTDIvol = ( 20.72 ) mGy, DLP = ( 1943.55 ) mGycm TECHNIQUE: Transaxial imaging was performed following intravenous administration of 100 ml of Isovue 300. Multiplanar coronal and sagittal images were reformatted. Individualized dose optimization techniques were used for this CT. COMPARISON: None. FINDINGS: The lungs are normal. There is no demonstrated pleural abnormality. Normal heart and pericardium. Normal mediastinum. Normal hilar regions. There is prominence of the pulmonary hilar arteries without peripheral pulmonary vascular congestion. There is atherosclerotic tortuosity of the aortic arch and descending thoracic aorta. Maximum transverse dimension of the ascending thoracic aorta measures approximately 3.8 cm. Normal osseous structures. There is a abnormal thickening of the dixon of the distal esophagus which measure up to 1.3 cm in thickness. This could be the result of gastroesophageal reflux. Neoplastic etiologies are not excluded. CT/Chest WITH Contrast IMPRESSION: 1. No CT evidence of acute cardiopulmonary disease. 2. Abnormal thickening of the dixon of the distal esophagus. Electronically Signed: Kathy Kumar MD at 9:57 EST , Service support ,
[2019-02-24 14:20] LABS: CREATININE FINGERSTICK 0.9 mg/dL (0.55-1.02); EGFR FINGERSTICK > 60.0000 mL/min (>60)
== END ==
PROVIDERS: Family Provider Family Medicine; PCP Family Medicine; Referring Provider Internal Medicine Medical Oncology; Visit Provider Internal Medicine Medical Oncology
DX: C50.512 Malignant neoplasm of lower-outer quadrant of left female breast (principal)
CPT/HCPCS: 71260; 74177; Q9967

== ENCOUNTER → 2019-02-28 10:19 | Outpatient (CLI) | payer OTHER, MEDICARE, SELFPAY ==
[2018-06-03 13:00] VITALS: BMI 38.1
[2018-09-04 12:31] VITALS: BMI 37.0
--- NOTE | 2019-02-28 10:20 | NM_ITS ---
CLINICAL: 63-year-old female with history of carcinoma of the breast. WHOLE BODY 99m Tc MDP RADIONUCLIDE BONE SCINTIGRAPHY COMPARISON: CT of the chest, abdomen-pelvis reports 02/24/2019 FINDINGS: Following the intravenous administration of 25.2 mCi of 99m Tc MDP, whole body bone images reveal: 1. Increased radiopharmaceutical concentration is identified in the acromioclavicular and sternoclavicular compartments of both shoulders, third and 10th thoracic vertebra posteriorly on the right, right posterior sacrum, right hip, visualized right wrist and hand, knees bilaterally, right-left ankles, intensely defined in the bilateral midfoot and focally visualized in the right-left forefoot. 2.The remaining skeletal structures are scintigraphically unremarkable with normal-appearing renal images and urinary bladder activity identified. Enhanced uptake is noted in the bilateral maxilla and right mandible most consistent with periodontal disease and/or periostitis. NM/Bone Scan Whole Body IMPRESSION: 1. The increased radiopharmaceutical concentration identified in the bilateral shoulders, thoracic spine, sacrum, right hip, right wrist and hand, both knees, ankles bilaterally, right and left mid-forefoot is commensurate with degenerative arthritis. A component of synovial inflammation involving the bilateral mid foot is a diagnostic consideration secondary to the intensity of uptake. 2. There is no definitive typical scintigraphic evidence of diffuse axial skeletal metastatic disease on the current examination. Electronically Signed: Major Tan DO at 13:58 EST Tel , Service support ,
== END ==
PROVIDERS: Family Provider Family Medicine; PCP Family Medicine; Referring Provider Internal Medicine Medical Oncology; Visit Provider Internal Medicine Medical Oncology
DX: C50.512 Malignant neoplasm of lower-outer quadrant of left female breast (principal)
CPT/HCPCS: 78306

== ENCOUNTER → 2019-04-03 14:32 | Outpatient (CLI) | payer OTHER, MEDICARE, SELFPAY ==
[2018-06-03 13:00] VITALS: BMI 38.1
[2018-09-04 12:31] VITALS: BMI 37.0
--- NOTE | 2019-04-03 14:33 | BI_ITS ---
MAMMOGRAPHY - BILATERAL SCREENING REASON FOR EXAM: Female, 63 years old. Routine annual screening examination. PERTINENT HISTORY: Personal history of breast cancer. Prior left lumpectomy with radiation treatment. TECHNIQUE: Digital bilateral breast alirio (3D mammographic acquisition) in the CC and MLO projections. 2-D mediolateral oblique (MLO) and craniocaudad (CC) views of both breasts were obtained. CAD: Full Field Digital Mammography with Computer Added Detection was performed. COMPARISON: Comparison is made with prior examination dated April 02, 2018 and February 03, 2016. FINDINGS: Breast Composition: The breasts are almost entirely fatty. There are no dominant masses or suspicious calcifications. Since prior examination, the patient underwent resection of the small nodular density in the mid lateral aspect of the left breast. Postoperative changes at that site are seen. Stable axillary lymph nodes. No other significant abnormalities are identified. BI/SCREEN MAMM (CAD) W/ALIRIO BILAT IMPRESSION: Status post left lumpectomy with postoperative changes. Yearly follow-up mammogram recommended. (A) ASSESSMENT CATEGORY: BIRADS Category 2: Benign. A letter regarding these results will be sent to the patient by the facility within 30 days. Approximately 10% of breast cancers are not detected by mammography. A normal mammogram should not delay biopsy of a clinically suspicious abnormality. [id number] Electronically Signed: Alcides Harry, at 15:41 EST , Service support ,
== END ==
PROVIDERS: Family Provider Family Medicine; PCP Family Medicine; Referring Provider Internal Medicine Medical Oncology; Visit Provider Internal Medicine Medical Oncology
DX: Z12.31 Encounter for screening mammogram for malignant neoplasm of breast (principal); Z85.3 Personal history of malignant neoplasm of breast
CPT/HCPCS: 77063; 77067

== ENCOUNTER → 2020-04-05 09:48 | Outpatient (CLI) | payer MEDICARE, SELFPAY ==
[2018-06-03 13:00] VITALS: BMI 38.1
[2019-09-04 14:25] VITALS: BMI 38.0
--- NOTE | 2020-04-05 09:52 | BI_ITS ---
MAMMOGRAPHY - BILATERAL SCREENING REASON FOR EXAM: Female, 64 years old. Routine annual screening examination. PERTINENT HISTORY: Personal history of breast cancer. Prior left lumpectomy and radiation treatment. TECHNIQUE: Digital bilateral breast alirio (3D mammographic acquisition) in the CC and MLO projections. 2-D mediolateral oblique (MLO) and craniocaudad (CC) views of both breasts were obtained. CAD: Full Field Digital Mammography with Computer Added Detection was performed. COMPARISON: Comparison is made with prior examination dated 04/03/2019 and 04/02/2018. FINDINGS: Breast Composition: The breasts are almost entirely fatty. There are no dominant masses or suspicious calcifications. Status post left lumpectomy with postoperative scarring in the mid lateral aspect of the left breast. No other significant abnormalities are identified. There has been no significant change since the prior study. BI/SCREEN MAMM (CAD) W/ALIRIO BILAT IMPRESSION: Stable bilateral screening mammogram. Yearly follow-up mammogram recommended. (A) ASSESSMENT CATEGORY: BIRADS Category 2: Benign. A letter regarding these results will be sent to the patient by the facility within 30 days. Approximately 10% of breast cancers are not detected by mammography. A normal mammogram should not delay biopsy of a clinically suspicious abnormality. [id number] Electronically Signed: Alcides Harry, at 10:54 EST , Service support ,
== END ==
PROVIDERS: PCP Family Medicine; Referring Provider Internal Medicine Medical Oncology; Visit Provider Internal Medicine Medical Oncology
DX: Z12.31 Encounter for screening mammogram for malignant neoplasm of breast (principal); Z85.3 Personal history of malignant neoplasm of breast
CPT/HCPCS: 77063; 77067

== ENCOUNTER → 2020-12-16 | Outpatient (CLI) | payer MEDICARE, SELFPAY ==
[2018-06-03 13:00] VITALS: BMI 38.1
== END | disposition home or self-care (01) ==
LOC: LABSPEC 14:16
PROVIDERS: PCP Family Medicine; Referring Provider Family Medicine; Visit Provider Family Medicine
DX: Z20.822 Contact with and (suspected) exposure to COVID-19 (principal)
CPT/HCPCS: 87633; 87635; U0005; U0003

== ENCOUNTER 2021-04-06 08:24 | Outpatient (CLI) | payer MEDICARE, SELFPAY ==
[2018-06-03 13:00] VITALS: BMI 38.1
--- NOTE | 2021-04-06 08:27 | BI_ITS ---
MAMMOGRAPHY - BILATERAL SCREENING REASON FOR EXAM: Female, 65 years old. Routine annual screening examination. PERTINENT HISTORY: Personal history of breast cancer. Prior left lumpectomy with radiation treatment. TECHNIQUE: Digital bilateral breast alirio (3D mammographic acquisition) in the CC and MLO projections. 2-D mediolateral oblique (MLO) and craniocaudad (CC) views of both breasts were obtained. CAD: Full Field Digital Mammography with Computer Added Detection was performed. COMPARISON: Comparison is made with prior study dated 04/05/2020 and 04/03/2019 FINDINGS: Breast Composition: The breasts are almost entirely fatty. There are no dominant masses or suspicious calcifications. The patient is status post lumpectomy in the deep inferior lateral aspect of the left breast with resultant postoperative deformity and scarring. No other significant abnormalities are identified. There has been no significant change since the prior study. BI/SCRN MAMM (CAD)W/ALIRIO BILAT IMPRESSION: Stable bilateral screening mammogram. Yearly follow-up mammogram recommended. (A) ASSESSMENT CATEGORY: BIRADS Category 2: Benign. A letter regarding these results will be sent to the patient by the facility within 30 days. Approximately 10% of breast cancers are not detected by mammography. A normal mammogram should not delay biopsy of a clinically suspicious abnormality. [id number] Electronically Signed: Alcides Harry MD at 9:25 EST , Service support ,
== END 2021-04-06 23:59 | disposition short-term general hospital (02) ==
LOC: OPBI 08:25
PROVIDERS: PCP Family Medicine; Referring Provider Internal Medicine Medical Oncology; Visit Provider Internal Medicine Medical Oncology
DX: Z12.31 Encounter for screening mammogram for malignant neoplasm of breast (principal)
CPT/HCPCS: 77063; 77067

== ENCOUNTER → 2022-04-10 | Outpatient (CLI) | payer MEDICARE, SELFPAY ==
[2018-06-03 13:00] VITALS: BMI 38.1
--- NOTE | 2022-04-10 08:40 | BI_ITS ---
MAMMOGRAPHY - BILATERAL SCREENING REASON FOR EXAM: Female, 66 years old. Routine annual screening examination. PERTINENT HISTORY: Personal history of breast cancer. Prior left lumpectomy and radiation treatment. TECHNIQUE: Digital bilateral breast alirio (3D mammographic acquisition) in the CC and MLO projections. 2-D mediolateral oblique (MLO) and craniocaudad (CC) views of both breasts were obtained. CAD: Full Field Digital Mammography with Computer Added Detection was performed. COMPARISON: Comparison is made with prior study dated 04/06/2021 and 04/05/2020. FINDINGS: Breast Composition: The breasts are almost entirely fatty. There are no dominant masses or suspicious calcifications. Once again, the patient is status post lumpectomy in the deep inferior lateral aspect of the left breast with resultant postoperative scarring. No other significant abnormalities are identified. There has been no significant change since the prior study. BI/SCRN MAMM (CAD)W/ALIRIO BILAT IMPRESSION: Stable bilateral screening mammogram. Yearly follow-up mammogram recommended. (A) ASSESSMENT CATEGORY: BIRADS Category 2: Benign. A letter regarding these results will be sent to the patient by the facility within 30 days. Approximately 10% of breast cancers are not detected by mammography. A normal mammogram should not delay biopsy of a clinically suspicious abnormality. [id number] Electronically Signed: Alcides Harry MD at 9:27 EST ,
== END | disposition home or self-care (01) ==
LOC: OPBI 08:37
PROVIDERS: PCP Family Medicine; Visit Provider Student in an Organized Health Care Education/Training Program
DX: Z12.31 Encounter for screening mammogram for malignant neoplasm of breast (principal); Z85.3 Personal history of malignant neoplasm of breast; Z92.3 Personal history of irradiation
CPT/HCPCS: 77063; 77067

== ENCOUNTER → 2022-12-19 | Outpatient (CLI) | payer MEDICARE, SELFPAY ==
[2018-06-03 13:00] VITALS: BMI 38.1
[2022-12-19 12:52] LABS: AST(SGOT) 20 U/L (15-37); Alanine Aminotransfer ALT/SGPT 32 U/L (13-56); Anion Gap 6 (5-15); BUN 11 mg/dL (7-18); BUN/Creat Ratio 14.5 RATIO (10-20); Calcium,Total 9.5 mg/dL (8.5-10.1); Chloride 106 mmol/L (98-107); Cholesterol 185 mg/dL (200); Creatinine, Serum 0.76 mg/dL (0.55-1.02); EST Glomerular Filtration Rate 80 mL/min (>60); Est Glom Filt Rate - Afr Amer 97 mL/min (>60); Glucose 90 mg/dL (74-106); High Density Lipoprotein 83 mg/dL; Sodium Level 139 mmol/L (136-145); Triglycerides 67 mg/dL; Very Low Density Lipoprotein 13 mg/dL (5-40)
== END | disposition home or self-care (01) ==
PROVIDERS: PCP Family Medicine; Visit Provider Family Medicine
DX: I10 Essential (primary) hypertension (principal); E78.5 Hyperlipidemia, unspecified
CPT/HCPCS: 36415; 80048; 80061; 84450; 84460

== ENCOUNTER → 2023-04-16 | Outpatient (CLI) | payer OTHER, SELFPAY ==
[2018-06-03 13:00] VITALS: BMI 38.1
--- NOTE | 2023-04-16 09:37 | BI_ITS ---
MAMMOGRAPHY - BILATERAL SCREENING REASON FOR EXAM: Female, 67 years old. Routine annual screening examination. PERTINENT HISTORY: Personal history of breast cancer. Prior left lumpectomy with radiation treatment. TECHNIQUE: Digital bilateral breast alirio (3D mammographic acquisition) in the CC and MLO projections. 2-D mediolateral oblique (MLO) and craniocaudad (CC) views of both breasts were obtained. CAD: Full Field Digital Mammography with Computer Added Detection was performed. COMPARISON: Comparison is made with prior study dated October 08, 2022 and April 06, 2021. FINDINGS: Breast Composition: The breasts are almost entirely fatty. There are no dominant masses or suspicious calcifications. The patient is status post lumpectomy in the deep inferior lateral aspect of the left breast. Stable scarring is seen at that site. No other significant abnormalities are identified. There has been no significant change since the prior study. BI/SCRN MAMM (CAD)W/ALIRIO BILAT IMPRESSION: Stable bilateral screening mammogram. Yearly follow-up mammogram recommended. (A) ASSESSMENT CATEGORY: BIRADS Category 2: Benign. A letter regarding these results will be sent to the patient by the facility within 30 days. Approximately 10% of breast cancers are not detected by mammography. A normal mammogram should not delay biopsy of a clinically suspicious abnormality. [id number] Electronically Signed: Alcides Harry MD at 14:47 EST ,
== END | disposition home or self-care (01) ==
PROVIDERS: PCP Family Medicine; Referring Provider Student in an Organized Health Care Education/Training Program; Visit Provider Student in an Organized Health Care Education/Training Program
DX: Z12.31 Encounter for screening mammogram for malignant neoplasm of breast (principal); Z85.3 Personal history of malignant neoplasm of breast
CPT/HCPCS: 77063; 77067

== ENCOUNTER → 2024-04-17 | Outpatient (CLI) | payer MEDICARE, SELFPAY ==
[2018-06-03 13:00] VITALS: BMI 38.1
--- NOTE | 2024-04-17 09:57 | BD_ITS ---
STUDY: DUAL ENERGY X-RAY ABSORPTIOMETRY / DXA REASON FOR EXAM: Female, 68 years old. Screening TECHNIQUE: Bone Mineral Density (BMD) measurements of lumbar spine and bilateral hips were obtained. COMPARISON: Comparison is made with prior study dated June 06, 2018. FINDINGS: Lumbar Spine (L1-L4): g/cm2 (1.093) / T-score (0.4) / Z-score (2.6) Findings are suggestive of normal bone density with a low fracture risk. Left Femur Total: g/cm2 (1.056) / T-score (0.9) / Z-score (2.5) Left Femoral Neck: g/cm2 (0.780) / T-score (-0.6) / Z-score (1.2) Right Femur Total: g/cm2 (1.043) / T-score (0.8) / Z-score (2.4) Right Femoral Neck: g/cm2 (0.806) / T-score (-0.4) / Z-score (1.4) The T-Scores on the most recent prior examination were: Lumbar Spine (L1-L4): There has been worsening of bone density since the previous examination. Left Femur Total: which represents a worsening of 3.3%. Right Femur Total: which represents a worsening of 7.3%. BD/Dexa Bone Density Study IMPRESSION: The patient is considered normal as outlined below according to World [employer] (WHO) criteria with a low fracture risk. There has been worsening of bone density since the previous examination. Reference Information: The T-score is the number of standard deviations above or below the standard which is normal for young adults at their peak bone mineral density. The World Health Organization (WHO) interprets the T-scores as follows: Above -1 Normal bone density Between -1 and -2.5 Osteopenia Equal to / or below -2.5 Osteoporosis As a practical clinical guideline, osteopenia may be graded as follows: Mild -1 through -1.5 Moderate -1.6 through -2.0 Severe -2.1 through -2.4 The Z-score is the number of standard deviations above or below age-matched controls. A Z-score of less than -1.5 would be considered abnormal. References: 1. NIH Osteoporosis and Related Bone Diseases www osteo.org 2. International Society for Clinical Densitometry www iscd.org 3. National Osteoporosis Foundation www nof.org Electronically Signed: Alcides Harry MD at 11:01 EST ,
--- NOTE | 2024-04-17 09:57 | BI_ITS ---
MAMMOGRAPHY - BILATERAL SCREENING REASON FOR EXAM: Female, 68 years old. Routine annual screening examination. PERTINENT HISTORY: Personal history of breast cancer. Prior left lumpectomy with radiation therapy. TECHNIQUE: Digital bilateral breast alirio (3D mammographic acquisition) in the CC and MLO projections. 2-D mediolateral oblique (MLO) and craniocaudad (CC) views of both breasts were obtained. CAD: Full Field Digital Mammography with Computer Added Detection was performed. COMPARISON: Comparison is made with prior study dated April 16, 2023 and April 10, 2022. FINDINGS: Breast Composition: The breasts are almost entirely fatty. There are no dominant masses or suspicious calcifications. Once again, the patient is status post lumpectomy in the deep inferior lateral aspect of the left breast. Stable postoperative scarring. No other significant abnormalities are identified. There has been no significant change since the prior study. BI/SCRN MAMM (CAD)W/ALIRIO BILAT IMPRESSION: Stable bilateral screening mammogram. Yearly follow-up mammogram recommended. (A) ASSESSMENT CATEGORY: BIRADS Category 2: Benign. A letter regarding these results will be sent to the patient by the facility within 30 days. Approximately 10% of breast cancers are not detected by mammography. A normal mammogram should not delay biopsy of a clinically suspicious abnormality. [id number] Electronically Signed: Alcides Harry MD at 11:11 EST ,
== END | disposition home or self-care (01) ==
LOC: OPBD 09:55
PROVIDERS: PCP Family Medicine; Referring Provider Nurse Practitioner Family; Visit Provider Nurse Practitioner Family
DX: Z12.31 Encounter for screening mammogram for malignant neoplasm of breast (principal); Z85.3 Personal history of malignant neoplasm of breast; Z78.0 Asymptomatic menopausal state; Z13.820 Encounter for screening for osteoporosis
CPT/HCPCS: 77063; 77067; 77080

== ENCOUNTER → 2024-07-11 | Outpatient (CLI) | payer MEDICARE, SELFPAY ==
[2018-06-03 13:00] VITALS: BMI 38.1
[2024-07-11 13:11] LABS: Protein, Urine (Random) 28.2 mg/dL (0.0-12.0); Protein:Creat Ratio 91 mg/g CRE (0-200)
[2024-07-11 13:26] LABS: Cholesterol 186 mg/dL (<=200); High Density Lipoprotein 68 mg/dL; Low Density Lipoprotein Calc. 102 mg/dL; Triglycerides 80 mg/dL; Very Low Density Lipoprotein 16 mg/dL (5-40); cholesterol:hdl ratio screen 2.74
== END | disposition home or self-care (01) ==
LOC: MFPLAB 09:41
PROVIDERS: PCP Family Medicine; Referring Provider Family Medicine; Visit Provider Family Medicine
DX: I10 Essential (primary) hypertension (principal)
CPT/HCPCS: 36415; 80061; 82570; 84156